=== PATIENT | male | born 1970 | race Caucasian/White ===

== ENCOUNTER 2017-03-10 11:54 | Inpatient (IN) | payer OTHER ==
[2017-03-10 12:03] VITALS: BMI 23.1
--- NOTE | 2017-03-10 14:58 | HP ---
CIWA Score - CIWA Score Nausea/Vomitin Muscle Tremors: 4-Moderate,w/Arms Extend Anxiety: 4-Mod. Anxious/Guarded Agitation: 3 Paroxysmal Sweats: 3 Orientation: 0-Oriented Tacttile Disturbances: 0-None Auditory Disturbances: 0-None Visual Disturbances: 0-None Headache: 2-Mild CIWA-Ar Total Score: 18 Admission ROS BHS - HPI Chief Complaint: Withdrawal sx. Allergies/Adverse Reactions: Allergies Allergy/AdvReac Type Severity Reaction Status Date / Time amoxicillin [Amoxicillin] Allergy Severe Vomiting Verified 02/05/15 16:22 History of Present Illness: 46 y/o man with a long hx. of alcoholism is admitted for detox. Pt. has been in previous detox, denies sobriety. He' currently attending OTP at [facility] on 40mg. Exam Limitations: No Limitations - Ebola screening Have you traveled outside of the country in the last 21 days: No Have you had contact with anyone from an Ebola affected area: No Have you been sick,other than usual withdrawal symptoms: No Do you have a fever: No - Review of Systems Constitutional: Diaphoresis EENT: reports: No Symptoms Reported Respiratory: reports: No Symptoms reported Cardiac: reports: No Symptoms Reported GI: reports: Nausea, Abdominal cramping : reports: No Symptoms Reported Musculoskeletal: reports: Joint Pain Integumentary: reports: Sweating Neuro: reports: Tingling, Tremors, Other (blackouts) Endocrine: reports: No Symptoms Reported Hematology: reports: No Symptoms Reported Psychiatric: reports: No Sypmtoms Reported Other Systems: Reviewed and Negative Patient History - Patient Medical History Hx Anemia: No Hx Asthma: No Hx Chronic Obstructive Pulmonary Disease (COPD): No Hx Cancer: No Hx Cardiac Disorders: No Hx Congestive Heart Failure: No Hx Hypertension: No Hx Hypercholesterolemia: No HX Cerebrovascular Accident: No Hx Seizures: No Hx Dementia: No Hx Diabetes: No Hx Gastrointestinal Disorders: No Hx Liver Disease: No Hx Genitourinary Disorders: No Hx Sexually Transmitted Disorders: No Hx Renal Disease (ESRD): No Hx Thyroid Disease: No Hx Human Immunodeficiency Virus (HIV): No Hx Hepatitis C: No (? not of status) Hx Depression: Yes Hx Suicide Attempt: No Hx Bipolar Disorder: Yes (was on seroquel, non-compliant) Hx Schizophrenia: No - Patient Surgical History Past Surgical History: Yes Hx Neurologic Surgery: No Hx Cataract Extraction: No Hx Cardiac Surgery: No Hx Lung Surgery: No Hx Breast Surgery: No Hx Breast Biopsy: No Hx Abdominal Surgery: No Hx Appendectomy: No Hx Cholecystectomy: No Hx Genitourinary Surgery: No Hx Section: No Hx Orthopedic Surgery: No Other Surgical History: repair of laceration of scalp Anesthesia Reaction: No - PPD History Previous Implant?: Yes Documented Results: Negative w/proof Implanted On Prior [facility] Admission?: Yes Date: 02/07/15 Results: 0 mm PPD to be Administered?: Yes - Smoking Cessation Smoking history: Current every day smoker Have you smoked in the past 12 months: Yes Aproximately how many cigarettes per day: 5 Hx Chewing Tobacco Use: No Initiated information on smoking cessation: Yes 'Breaking Loose' booklet given: 03/10/17 - Substance & Tx. History Hx Alcohol Use: Yes Hx Substance Use: Yes Substance Use Type: Alcohol, Cocaine, Prescribed (Methadone maintenance) Hx Substance Use Treatment: Yes (Detox & rehab) - Substances Abused Alcohol Route: Oral Frequency: Daily Amount used: Beer 4(6packs) Age of first use: 10 Date of Last Use: 03/10/17 Crack Route: Smoking Frequency: 3-6 times per week Amount used: 1-2 bags Age of first use: 13 Date of Last Use: 03/09/17 Family Disease History - Family Disease History Family Disease History: Diabetes: Grandparent (GRANDMOTHER-ALCOHOLISM; G-FATHER- PROSTATE CA--.), Mother (HTN-), CA: Grandparent, Other: Father ( alcohol), Mother Admission Physical Exam [facility] - Vital Signs Vital Signs: Vital Signs - 24 hr 03/10/17 12:01 Temperature 96.7 F L Pulse Rate 86 Respiratory 18 Rate Blood Pressure 130/84 - Physical General Appearance: Yes: Alcohol on Breath, Tremorous, Irritable, Sweating, Anxious HEENTM: Yes: Within Normal Limits Respiratory: Yes: Chest Non-Tender, Lungs Clear, Normal Breath Sounds Neck: Yes: Supple Breast: Yes: Breast Exam Deferred Cardiology: Yes: Regular Rhythm, Regular Rate, S1, S2 Abdominal: Yes: Normal Bowel Sounds, Non Tender, Flat Genitourinary: Yes: Within Normal Limits Back: Yes: Within Normal Limits Musculoskeletal: Yes: Within Normal Limits Extremities: Yes: Tremors Neurological: Yes: Fully Oriented, Alert Integumentary: Yes: Diaphoresis Lymphatic: Yes: Within Normal Limits - Diagnostic (1) Cocaine dependence, uncomplicated Current Visit: Yes Status: Acute (2) Alcohol dependence with withdrawal, uncomplicated Current Visit: Yes Status: Acute (3) Methadone maintenance therapy patient Current Visit: Yes Status: Chronic Cleared for Admission [facility] - Detox or Rehab [facility] Level of Care: Medically Managed Detox Regimen/Protocol: Librium S Breath Alcohol Content Breath Alcohol Content: 0.054 Urine Drug Screen - Results Drug Screen Negative: No Urine Drug Screen Results: GENIA-Cocaine, BZO-Benzodiazepines, MTD-Methadone
[2017-03-10] MEDS ORDERED: MENTHOL/PHENOL 1 EACH UD MM PRN (15:10)
[2017-03-10] MEDS ORDERED: MAGNESIUM CITRATE 300 ML BOTTLE PO PRN (15:10)
[2017-03-10] MEDS ORDERED: chlordiazePOXIDE HCL 25 MG CAPSULE PO PRN (15:10)
[2017-03-10] MEDS ORDERED: NICOTINE POLACRILEX 2 MG GUM BC PRN (15:10)
[2017-03-10] MEDS ORDERED: MAG HYDROX/AL HYDROX/SIMETH 30 ML UNIT-DOSE CUP PO PRN (15:10)
[2017-03-10] MEDS ORDERED: IBUPROFEN 400 MG TABLET (FP) PO PRN (15:10)
[2017-03-10] MEDS ORDERED: LOPERAMIDE HCL 2 MG CAPSULE PO PRN (15:10)
[2017-03-10] MEDS ORDERED: guaiFENesin/D-METHORPHAN HB 10 ML UNIT-DOSE CUPS PO PRN (15:10)
[2017-03-10] MEDS ORDERED: ACETAMINOPHEN 325 MG TABLET (FP) PO PRN (15:10)
[2017-03-10] MEDS ORDERED: hydrOXYzine PAMOATE 50 MG CAPSULE (FP) PO PRN (15:10)
[2017-03-10] MEDS ORDERED: MAGNESIUM HYDROX 2400MG/30ML ORAL SUSPENSION 30 ML CUP PO PRN (15:10)
[2017-03-10] MEDS ORDERED: chlordiazePOXIDE HCL 25 MG CAPSULE PO ONE (15:10)
[2017-03-10] MEDS ORDERED: P-EPHED 60MG/TRIPROLIDI 2.5MG TABLET PO PRN (15:10)
[2017-03-10] MEDS: NICOTINE 14 MG/24 HOURS TOPICAL PATCH TD SCH (18:39)
[2017-03-10] MEDS: chlordiazePOXIDE HCL 25 MG CAPSULE PO SCH ×2 (18:40→22:20)
[2017-03-10 19:19] LABS: URINE APPEARANCE CLEAR; URINE BILIRUBIN NEGATIVE (NEGATIVE); URINE BLOOD NEGATIVE (NEGATIVE); URINE COLOR LTYELLOW; URINE GLUCOSE (UA) NEGATIVE (NEGATIVE); URINE KETONE NEGATIVE (NEGATIVE); URINE LEUK ESTERASE NEGATIVE (NEGATIVE); URINE NITRITE NEGATIVE (NEGATIVE); URINE PROTEIN NEGATIVE (NEGATIVE); URINE UROBILINOGEN NEGATIVE mg/dL (0.2-1.0)
[2017-03-10 21:23] LABS: URINE LEUK ESTERASE NEGATIVE (NEGATIVE)
[2017-03-10] MEDS: THIAMINE HCL 100 MG TABLET (FP) PO SCH (22:20)
[2017-03-11] MEDS: chlordiazePOXIDE HCL 25 MG CAPSULE PO SCH ×4 (05:59→22:11)
[2017-03-11] MEDS: NICOTINE 14 MG/24 HOURS TOPICAL PATCH TD SCH (10:12)
[2017-03-11] MEDS: PRENATAL VITAMINS W/ FOLIC ACID TABLET (FP) PO SCH (10:12)
[2017-03-11] MEDS ORDERED: METHADONE HCL 40 MG DISPERSABLE TABLET PO ONE (10:41)
[2017-03-11 10:46] LABS: MCH 34.8 pg (25.7-33.7); MCHC 33.1 g/dl (32.0-35.9); MEAN CELL VOLUME 104.9 fl (80-96); PLATELET COUNT 247 K/MM3 (134-434); RDW 13.6 % (11.9-15.9); WHITE BLOOD COUNT 4.4 K/mm3 (4.0-10.0)
[2017-03-11 11:01] LABS: ALBUMIN 3.5 g/dl (3.4-5.0); ALK PHOS 87 U/L (45-117); ANION GAP 6 (8-16); BILIRUBIN,TOTAL 0.6 mg/dL (0.2-1.0); CALCIUM 8.6 mg/dL (8.5-10.1); CO2 29 mmol/L (21-32); CREATININE 0.7 mg/dL (0.7-1.3); GLUCOSE,RANDOM 106 mg/dL (74-106); SGPT/ALT 273 U/L (12-78); TOT PROT 8.7 g/dl (6.4-8.2)
[2017-03-11 11:02] LABS: SGOT/AST 436 U/L (15-37)
[2017-03-11] MEDS ORDERED: FLU VACCINE QUAD 60 MCG/0.5 ML (MDV 17-18) IM ONE (12:00)
--- NOTE | 2017-03-11 12:51 | PN ---
[facility] CIWA - CIWA Score Nausea/Vomitin-No Nausea/No Vomiting Muscle Tremors: 4-Moderate,w/Arms Extend Anxiety: 4-Mod. Anxious/Guarded Agitation: 4-Moderately Restless Paroxysmal Sweats: 1-Minimal Palms Moist Orientation: 0-Oriented Tacttile Disturbances: 3-Moderate Itch/Numb/Burn Auditory Disturbances: 0-None Visual Disturbances: 0-None Headache: 0-None Present CIWA-Ar Total Score: 16 S Progress Note (SOAP) Subjective: ANXIETY,SWEATS/CHILLS,FATIGUE. Objective: 03/11/17 12:54 Vital Signs Temperature 98.0 F 03/11/17 09:30 Pulse Rate 79 03/11/17 09:30 Respiratory Rate 16 03/11/17 09:30 Blood Pressure 100/61 03/11/17 09:30 O2 Sat by Pulse Oximetry (%) Laboratory Last Values WBC 4.4 K/mm3 (4.0-10.0) 03/11/17 07:00 RBC 3.53 M/mm3 (4.00-5.60) L 03/11/17 07:00 Hgb 12.3 GM/dL (11.7-16.9) 03/11/17 07:00 Hct 37.0 % (35.4-49) 03/11/17 07:00 MCV 104.9 fl (80-96) H 03/11/17 07:00 MCH 34.8 pg (25.7-33.7) H 03/11/17 07:00 MCHC 33.1 g/dl (32.0-35.9) 03/11/17 07:00 RDW 13.6 % (11.9-15.9) 03/11/17 07:00 Plt Count 247 K/MM3 (134-434) D 03/11/17 07:00 MPV 8.0 fl (7.5-11.1) 03/11/17 07:00 Sodium 135 mmol/L (136-145) L 03/11/17 07:00 Potassium 4.1 mmol/L (3.5-5.1) 03/11/17 07:00 Chloride 100 mmol/L (98-107) 03/11/17 07:00 Carbon Dioxide 29 mmol/L (21-32) 03/11/17 07:00 Anion Gap 6 (8-16) L 03/11/17 07:00 BUN 9 mg/dL (7-18) D 03/11/17 07:00 Creatinine 0.7 mg/dL (0.7-1.3) 03/11/17 07:00 Creat Clearance w eGFR > 60 (>60) 03/11/17 07:00 Random Glucose 106 mg/dL (74-106) D 03/11/17 07:00 Calcium 8.6 mg/dL (8.5-10.1) 03/11/17 07:00 Total Bilirubin 0.6 mg/dL (0.2-1.0) 03/11/17 07:00 AST 436 U/L (15-37) H D 03/11/17 07:00 ALT 273 U/L (12-78) H D 03/11/17 07:00 Alkaline Phosphatase 87 U/L (45-117) 03/11/17 07:00 Total Protein 8.7 g/dl (6.4-8.2) H 03/11/17 07:00 Albumin 3.5 g/dl (3.4-5.0) 03/11/17 07:00 Urine Color Ltyellow 03/10/17 18:00 Urine Appearance Clear 03/10/17 18:00 Urine pH 6.0 (5.0-8.0) 03/10/17 18:00 Ur Specific [place] 1.006 (1.001-1.035) 03/10/17 18:00 Urine Protein Negative (NEGATIVE) 03/10/17 18:00 Urine Glucose (UA) Negative (NEGATIVE) 03/10/17 18:00 Urine Ketones Negative (NEGATIVE) 03/10/17 18:00 Urine Blood Negative (NEGATIVE) 03/10/17 18:00 Urine Nitrite Negative (NEGATIVE) 03/10/17 18:00 Urine Bilirubin Negative (NEGATIVE) 03/10/17 18:00 Urine Urobilinogen Negative mg/dL (0.2-1.0) 03/10/17 18:00 Ur Leukocyte Esterase Negative (NEGATIVE) 03/10/17 18:00 RPR Titer Nonreactive (NONREACTIVE) 03/11/17 07:00 Assessment: 03/11/17 12:56 WITHDRAWAL SX Plan: CONTINUE DETOX
--- NOTE | 2017-03-11 15:14 | EKG ---
Test Reason : Blood Pressure : / mmHG Vent. Rate : 068 BPM Atrial Rate : 068 BPM P-R Int : 116 ms QRS Dur : 100 ms QT Int : 430 ms P-R-T Axes : 013 080 056 degrees QTc Int : 457 ms NORMAL SINUS RHYTHM WITH SINUS ARRHYTHMIA NORMAL ECG NO PREVIOUS ECGS AVAILABLE Confirmed by ANGELA FOWLER MD ([id number]) on 03/11/2017 3:13:35 PM Referred By: Confirmed By:ANGELA FOWLER MD
--- NOTE | 2017-03-11 16:57 | CONSULT ---
[facility] Psychiatric Consult - Data Date of interview: 03/11/17 Admission source: [facility] Identifying data: Readmission to [facility] for this 46 y/o male seeking detox treatment on for opioid,alcohol and cocaine dependence.Patient is single without children,domiciled,unemployed and supported on Public Assistance. Substance Abuse History: Discussed in this session.Confirmed by patient.See details in current [facility] report : Smoking history: Current every day smoker. Have you smoked in the past 12 months: Yes. Aproximately how many cigarettes per day: 5. Hx Chewing Tobacco Use: No. Initiated information on smoking cessation: Yes. 'Breaking Loose' booklet given: 03/10/17. - Substance & Tx. History. Hx Alcohol Use: Yes. Hx Substance Use: Yes. Substance Use Type: Alcohol, Cocaine, Prescribed (Methadone maintenance). Hx Substance Use Treatment: Yes (Detox & rehab). - Substances Abused. Alcohol. Route: Oral. Frequency: Daily. Amount used: Beer 4(6packs). Age of first use: 10. Date of Last Use: 03/10/17. Crack. Route: Smoking. Frequency: 3-6 times per week. Amount used: 1-2 bags. Age of first use: 13. Date of Last Use: 12/16 Medical History: Patient endorses good general health.Noted recent history ( three years ago) of severe laceration of scalp (circumstances not revealed by patient). Psychiatric History: No reported history of psychiatric hospitalizations.Patient denies current use of psychotropic medications.Used to be on seroquel several months ago.Reasons not offered.No OPD care.Mr Licea denies history of suicide attempts.Currently on methadone maintenance (40 mg/day ) at the [facility]MTP program in [facility]. Physical/Sexual Abuse/Trauma History: Patient denies. Additional Comment: Urine Drug Screen Results: GENIA-Cocaine, BZO-Benzodiazepines , MTD-Methadone.Noted. Mental Status Exam - Mental Status Exam Alert and Oriented to: Time, Place, Person Cognitive Function: Good Patient Appearance: Unkempt, Disheveled Mood: Angry (over not receiving his methadone dose as yet), Nervous, Withdrawn, Irritable Affect: Mood Congruent Patient Behavior: Inappropriate (using profane language during interview), Fatigued Speech Pattern: Clear, Inappropriate Voice Loudness: Mildly Loud Thought Process: Goal Oriented Thought Disorder: Not Present Hallucinations: Denies Suicidal Ideation: Denies Homicidal Ideation: Denies Insight/Judgement: Poor Sleep: Well (as per self-report) Appetite: Good Muscle strength/Tone: Normal Gait/Station: Normal Psychiatric Findings - Problem List ([place] 1, 2,3) (1) Opioid dependence on agonist therapy Current Visit: Yes Status: Acute (2) Alcohol dependence with withdrawal, uncomplicated Current Visit: Yes Status: Acute (3) Cocaine dependence, uncomplicated Current Visit: Yes Status: Acute (4) Nicotine dependence Current Visit: Yes Status: Acute Qualifiers: Nicotine product type: cigarettes Substance use status: uncomplicated Qualified Code(s): F17.210 - Nicotine dependence, cigarettes, uncomplicated (5) Drug-induced mood disorder Current Visit: Yes Status: Acute - Initial Treatment Plan Initial Treatment Plan: Psychoeducation.Detoxification.Observation.
[2017-03-11] MEDS: NAPROXEN 500 MG TABLET (FP) PO SCH (22:11)
[2017-03-11] MEDS: THIAMINE HCL 100 MG TABLET (FP) PO SCH (22:11)
[2017-03-12] MEDS: chlordiazePOXIDE HCL 25 MG CAPSULE PO SCH ×2 (05:40→10:08)
[2017-03-12] MEDS: METHADONE HCL 40 MG DISPERSABLE TABLET PO SCH (05:40)
[2017-03-12] MEDS: BACITRACIN 0.9 GM PACKET TP SCH ×2 (10:08→22:18)
[2017-03-12] MEDS: PRENATAL VITAMINS W/ FOLIC ACID TABLET (FP) PO SCH (10:08)
[2017-03-12] MEDS: NICOTINE 14 MG/24 HOURS TOPICAL PATCH TD SCH (10:08)
[2017-03-12] MEDS: NAPROXEN 500 MG TABLET (FP) PO SCH ×2 (10:08→22:18)
--- NOTE | 2017-03-12 12:18 | PN ---
S CIWA - CIWA Score Nausea/Vomitin-No Nausea/No Vomiting Muscle Tremors: 3 Anxiety: 4-Mod. Anxious/Guarded Agitation: 3 Paroxysmal Sweats: 3 Orientation: 0-Oriented Tacttile Disturbances: 3-Moderate Itch/Numb/Burn Auditory Disturbances: 0-None Visual Disturbances: 0-None Headache: 3-Moderate CIWA-Ar Total Score: 19 BHS Progress Note (SOAP) Subjective: Sweating, Tremors, Interrupted Sleep, H/A, Body Aches. Objective: PT. A & OX 3, OBSERVED AMBULATING ON UNIT. NO ACUTE DISTRESS. 03/12/17 12:16 Vital Signs Temperature 97.7 F 03/12/17 09:32 Pulse Rate 79 03/12/17 09:32 Respiratory Rate 18 03/12/17 09:32 Blood Pressure 80/52 03/12/17 09:32 O2 Sat by Pulse Oximetry (%) Laboratory Tests 03/10/17 03/11/17 03/11/17 18:00 07:00 07:00 WBC 4.4 RBC 3.53 L Hgb 12.3 Hct 37.0 MCV 104.9 H MCH 34.8 H MCHC 33.1 RDW 13.6 Plt Count 247 D MPV 8.0 Sodium 135 L Potassium 4.1 Chloride 100 Carbon Dioxide 29 Anion Gap 6 L BUN 9 D Creatinine 0.7 Creat Clearance w eGFR > 60 Random Glucose 106 D Calcium 8.6 Total Bilirubin 0.6 AST 436 H D ALT 273 H D Alkaline Phosphatase 87 Total Protein 8.7 H Albumin 3.5 Urine Color Ltyellow Urine Appearance Clear Urine pH 6.0 Ur Specific [place] 1.006 Urine Protein Negative Urine Glucose (UA) Negative Urine Ketones Negative Urine Blood Negative Urine Nitrite Negative Urine Bilirubin Negative Urine Urobilinogen Negative Ur Leukocyte Esterase Negative RPR Titer 03/11/17 07:00 WBC RBC Hgb Hct MCV MCH MCHC RDW Plt Count MPV Sodium Potassium Chloride Carbon Dioxide Anion Gap BUN Creatinine Creat Clearance w eGFR Random Glucose Calcium Total Bilirubin AST ALT Alkaline Phosphatase Total Protein Albumin Urine Color Urine Appearance Urine pH Ur Specific [place] Urine Protein Urine Glucose (UA) Urine Ketones Urine Blood Urine Nitrite Urine Bilirubin Urine Urobilinogen Ur Leukocyte Esterase RPR Titer Nonreactive LABS NOTED. Assessment: 03/12/17 12:16 WITHDRAWAL SYMPTOMS. Plan: CONTINUED DETOX. INCREASE DAILY PO FLUID INTAKE. REPEAT AST, ALT TOMORROW FOR ELEVATED ADMISSION LEVELS.
[2017-03-12] MEDS: chlordiazePOXIDE 5 MG CAPSULE PO SCH ×2 (18:34→22:18)
[2017-03-12] MEDS: THIAMINE HCL 100 MG TABLET (FP) PO SCH (22:18)
[2017-03-13] MEDS: chlordiazePOXIDE 5 MG CAPSULE PO SCH ×2 (05:11→10:18)
[2017-03-13] MEDS: METHADONE HCL 40 MG DISPERSABLE TABLET PO SCH (05:13)
[2017-03-13] MEDS: BACITRACIN 0.9 GM PACKET TP SCH ×2 (10:18→22:16)
[2017-03-13] MEDS: NAPROXEN 500 MG TABLET (FP) PO SCH ×2 (10:18→22:16)
[2017-03-13] MEDS: PRENATAL VITAMINS W/ FOLIC ACID TABLET (FP) PO SCH (10:18)
[2017-03-13] MEDS: NICOTINE 14 MG/24 HOURS TOPICAL PATCH TD SCH (10:19)
[2017-03-13 10:25] LABS: SGOT/AST 269 U/L (15-37); SGPT/ALT 228 U/L (12-78)
--- NOTE | 2017-03-13 11:52 | PN ---
BHS Progress Note (SOAP) Subjective: Body Aches, Anxious, H/A. Objective: PT. A & O X 3, OBSERVED AMBULATING ON UNIT. NO ACUTE DISTRESS. 03/13/17 11:47 Vital Signs Temperature 96.3 F L 03/13/17 06:22 Pulse Rate 73 03/13/17 06:22 Respiratory Rate 18 03/13/17 06:22 Blood Pressure 108/60 03/13/17 06:22 O2 Sat by Pulse Oximetry (%) Laboratory Tests 03/10/17 03/11/17 03/11/17 18:00 07:00 07:00 WBC 4.4 RBC 3.53 L Hgb 12.3 Hct 37.0 MCV 104.9 H MCH 34.8 H MCHC 33.1 RDW 13.6 Plt Count 247 D MPV 8.0 Sodium 135 L Potassium 4.1 Chloride 100 Carbon Dioxide 29 Anion Gap 6 L BUN 9 D Creatinine 0.7 Creat Clearance w eGFR > 60 Random Glucose 106 D Calcium 8.6 Total Bilirubin 0.6 AST 436 H D ALT 273 H D Alkaline Phosphatase 87 Total Protein 8.7 H Albumin 3.5 Urine Color Ltyellow Urine Appearance Clear Urine pH 6.0 Ur Specific [place] 1.006 Urine Protein Negative Urine Glucose (UA) Negative Urine Ketones Negative Urine Blood Negative Urine Nitrite Negative Urine Bilirubin Negative Urine Urobilinogen Negative Ur Leukocyte Esterase Negative RPR Titer 03/11/17 03/13/17 07:00 07:00 WBC RBC Hgb Hct MCV MCH MCHC RDW Plt Count MPV Sodium Potassium Chloride Carbon Dioxide Anion Gap BUN Creatinine Creat Clearance w eGFR Random Glucose Calcium Total Bilirubin AST 269 H D ALT 228 H Alkaline Phosphatase Total Protein Albumin Urine Color Urine Appearance Urine pH Ur Specific [place] Urine Protein Urine Glucose (UA) Urine Ketones Urine Blood Urine Nitrite Urine Bilirubin Urine Urobilinogen Ur Leukocyte Esterase RPR Titer Nonreactive LABS NOTED. RESULTS OF REPEAT AST / ALT NOTED. 03/13/17 11:52 Assessment: 03/13/17 11:47 WITHDRAWAL SYMPTOMS. Plan: CONTINUE DETOX. INCREASE DAILY PO FLUID INTAKE.
[2017-03-13] MEDS: chlordiazePOXIDE HCL 10 MG CAPSULE PO SCH ×2 (17:55→22:16)
[2017-03-13] MEDS: THIAMINE HCL 100 MG TABLET (FP) PO SCH (22:16)
[2017-03-14] MEDS: METHADONE HCL 40 MG DISPERSABLE TABLET PO SCH (06:03)
[2017-03-14] MEDS: chlordiazePOXIDE HCL 10 MG CAPSULE PO SCH (06:03)
[2017-03-14 09:40] VITALS: BP 93/57; PULSE 80; TEMP 97.9
[2017-03-14] MEDS: NICOTINE 14 MG/24 HOURS TOPICAL PATCH TD SCH (10:06)
[2017-03-14] MEDS: NAPROXEN 500 MG TABLET (FP) PO SCH (10:06)
[2017-03-14] MEDS: BACITRACIN 0.9 GM PACKET TP SCH (10:06)
[2017-03-14] MEDS: PRENATAL VITAMINS W/ FOLIC ACID TABLET (FP) PO SCH (10:06)
--- NOTE | 2017-03-14 14:58 | DS ---
[facility] Detox Discharge Summary Admission Date: 03/10/17 Discharge Date: 03/14/17 - History Present History: Alcohol Dependence, Cocaine Dependence, Opioid Dependence Additional Comments: PATIENT GOING TO [facility] ([place] FOR AFTERCARE. PATIENT WAS DISCHARGED FROM DETOX UNIT IN STABLE MEDICAL CONDITION. Pertinent Past History: Depression, Bipolar Disorder, Nicotine Dependence, MMTP. - Physical Exam Results Vital Signs: Vital Signs Temperature 97.9 F 03/14/17 09:40 Pulse Rate 80 03/14/17 09:40 Respiratory Rate 18 03/14/17 09:40 Blood Pressure 93/57 03/14/17 09:40 O2 Sat by Pulse Oximetry (%) Pertinent Admission Physical Exam Findings: WITHDRAWAL SYMPTOMS. Laboratory Tests 03/10/17 03/11/17 03/11/17 18:00 07:00 07:00 WBC 4.4 RBC 3.53 L Hgb 12.3 Hct 37.0 MCV 104.9 H MCH 34.8 H MCHC 33.1 RDW 13.6 Plt Count 247 D MPV 8.0 Sodium 135 L Potassium 4.1 Chloride 100 Carbon Dioxide 29 Anion Gap 6 L BUN 9 D Creatinine 0.7 Creat Clearance w eGFR > 60 Random Glucose 106 D Calcium 8.6 Total Bilirubin 0.6 AST 436 H D ALT 273 H D Alkaline Phosphatase 87 Total Protein 8.7 H Albumin 3.5 Urine Color Ltyellow Urine Appearance Clear Urine pH 6.0 Ur Specific [place] 1.006 Urine Protein Negative Urine Glucose (UA) Negative Urine Ketones Negative Urine Blood Negative Urine Nitrite Negative Urine Bilirubin Negative Urine Urobilinogen Negative Ur Leukocyte Esterase Negative RPR Titer 03/11/17 03/13/17 07:00 07:00 WBC RBC Hgb Hct MCV MCH MCHC RDW Plt Count MPV Sodium Potassium Chloride Carbon Dioxide Anion Gap BUN Creatinine Creat Clearance w eGFR Random Glucose Calcium Total Bilirubin AST 269 H D ALT 228 H Alkaline Phosphatase Total Protein Albumin Urine Color Urine Appearance Urine pH Ur Specific [place] Urine Protein Urine Glucose (UA) Urine Ketones Urine Blood Urine Nitrite Urine Bilirubin Urine Urobilinogen Ur Leukocyte Esterase RPR Titer Nonreactive LABS NOTED. - Treatment Hospital Course: Detox Protocol Followed, Detoxed Safely, Responded well, Discharged Condition Good Patient has Accepted a Rehab Referral to: PT. GOING TO [facility] ([place]FOR AFTERCARE. - Diagnosis (1) Alcohol dependence with withdrawal, uncomplicated Status: Acute (2) Cocaine dependence, uncomplicated Status: Acute (3) Methadone maintenance therapy patient Status: Chronic (4) Drug-induced mood disorder Status: Acute (5) Nicotine dependence Status: Acute Qualifiers: Nicotine product type: cigarettes Substance use status: uncomplicated Qualified Code(s): F17.210 - Nicotine dependence, cigarettes, uncomplicated (6) Opioid dependence on agonist therapy Status: Acute - AMA Did Patient Leave Against Medical Advice: No
== END 2017-03-14 11:00 | disposition home or self-care (01) | DRG 773 ==
LOC: YASAS 11:54 → Y3N 15:43
PROVIDERS: ADMIT Internal Medicine; ATTEND Internal Medicine
PROC: HZ2ZZZZ Detoxification Services for Substance Abuse Treatment (ICD-10-PCS; principal; 2017-03-10)
DX: F11.20 Opioid dependence, uncomplicated (principal); F13.230 Sedative, hypnotic or anxiolytic dependence with withdrawal, uncomplicated; F14.20 Cocaine dependence, uncomplicated; F17.210 Nicotine dependence, cigarettes, uncomplicated; F19.24 Other psychoactive substance dependence with psychoactive substance-induced mood disorder; F31.9 Bipolar disorder, unspecified
CPT/HCPCS: 36415; 80053; 81003; 84450; 84460; 85027; 86593; 93005; 93010

== ENCOUNTER 2017-04-22 09:48 | Inpatient (IN) | payer OTHER ==
[2017-04-22 12:25] VITALS: BMI 20.6
--- NOTE | 2017-04-22 15:07 | HP ---
CIWA Score - CIWA Score Nausea/Vomitin-No Nausea/No Vomiting Muscle Tremors: 4-Moderate,w/Arms Extend Anxiety: 4-Mod. Anxious/Guarded Agitation: 4-Moderately Restless Paroxysmal Sweats: 1-Minimal Palms Moist Orientation: 0-Oriented Tacttile Disturbances: 3-Moderate Itch/Numb/Burn Auditory Disturbances: 0-None Visual Disturbances: 0-None Headache: 0-None Present CIWA-Ar Total Score: 16 Admission ROS BHS - HPI Chief Complaint: WITHDRAWAL SX FROM ALCOHOL Allergies/Adverse Reactions: Allergies Allergy/AdvReac Type Severity Reaction Status Date / Time No Known Drug Allergies Allergy Verified 04/22/17 16:24 amoxicillin [Amoxicillin] AdvReac Severe Vomiting Verified 04/22/17 16:24 History of Present Illness: 46 Y/O MALE WITH A HX OF ALCOHOL DEPENDENCE ON MMTP SEEKING DETOX TX. PT REPORTS WENT TO [facility] ER LAST NIGHT BUT WAS REFERRED HERE FOR DETOX TODAY. Exam Limitations: No Limitations - Ebola screening Have you traveled outside of the country in the last 21 days: No Have you had contact with anyone from an Ebola affected area: No Have you been sick,other than usual withdrawal symptoms: No - Review of Systems Constitutional: Chills, Night Sweats EENT: reports: Tearing, Nose Congestion Respiratory: reports: No Symptoms reported GI: reports: No Symptoms Reported : reports: No Symptoms Reported Musculoskeletal: reports: No Symptoms Reported Integumentary: reports: Bruising (TWO INDEX FINGERS--FROSTBITE 2 WEEKS AGO. CURRENTLY ON CEPHALEXIN 250 MG FOUR TIMES DAILY.) Neuro: reports: Headache (MIGRAINES), Tremors, Unsteady Gait, Dizziness, Other ( HX FALLS WITH HEAD INJURY AND STITCHES 3 YRS AGO DUE TO DRINKING ALCOHOL.) Endocrine: reports: No Symptoms Reported Hematology: reports: No Symptoms Reported Psychiatric: reports: Orientated x3, Anxious, Depressed Other Systems: Reviewed and Negative Patient History - Patient Medical History Hx Anemia: No Hx Asthma: No Hx Chronic Obstructive Pulmonary Disease (COPD): No Hx Cancer: No Hx Cardiac Disorders: No Hx Congestive Heart Failure: No Hx Hypertension: No Hx Hypercholesterolemia: No HX Cerebrovascular Accident: No Hx Seizures: No Hx Dementia: No Hx Diabetes: No Hx Gastrointestinal Disorders: No Hx Liver Disease: No Hx Genitourinary Disorders: No Hx Sexually Transmitted Disorders: No Hx Renal Disease (ESRD): No Hx Thyroid Disease: No Hx Human Immunodeficiency Virus (HIV): No Hx Hepatitis C: No Hx Depression: No Hx Suicide Attempt: No Hx Bipolar Disorder: Yes (was on seroquel, non-compliant) Hx Schizophrenia: No - Patient Surgical History Past Surgical History: Yes Hx Neurologic Surgery: No Hx Cataract Extraction: No Hx Cardiac Surgery: No Hx Lung Surgery: No Hx Breast Surgery: No Hx Breast Biopsy: No Hx Abdominal Surgery: No Hx Appendectomy: No Hx Cholecystectomy: No Hx Genitourinary Surgery: No Hx Orthopedic Surgery: No Other Surgical History: repair of laceration of scalp due to fall in intoxication 3 yrs ago. Anesthesia Reaction: No - PPD History Previous Implant?: Yes Documented Results: Negative w/proof Implanted On Prior [facility] Admission?: Yes Date: 03/12/17 Results: 0 mm PPD to be Administered?: No - Reproductive History Patient is a Female of Child Bearing Age (11 -55 yrs old): No (MALE) - Smoking Cessation Smoking history: Current every day smoker Have you smoked in the past 12 months: Yes Aproximately how many cigarettes per day: 10 Hx Chewing Tobacco Use: No Initiated information on smoking cessation: Yes 'Breaking Loose' booklet given: 04/22/17 - Substance & Tx. History Hx Alcohol Use: Yes (BEER/VODKA) Hx Substance Use: No (DENIES) Substance Use Type: Alcohol Hx Substance Use Treatment: Yes ([facility]-METHADONE 40 MG PO DAILY, L/D 04/21/17) - Substances Abused Alcohol Route: Oral Frequency: Daily Amount used: 2 6pks beer Age of first use: 10 Date of Last Use: 04/22/17 Family Disease History - Family Disease History Family Disease History: Diabetes: Grandparent (GRANDMOTHER-ALCOHOLISM; G-FATHER- PROSTATE CA--.), Mother (HTN-), CA: Grandparent, Other: Father ( no contact - alcohol), Mother, Brother (healthy), Sister (healthy) Admission Physical Exam BHS - Vital Signs Vital Signs: Vital Signs - 24 hr 04/22/17 12:24 Temperature 98.2 F Pulse Rate 72 Respiratory 20 Rate Blood Pressure 118/82 - Physical General Appearance: Yes: Within Normal Limits, Moderate Distress, Irritable, Anxious HEENTM: Yes: EOMI, Normocephalic, OSMAN, Pharynx Normal Respiratory: Yes: Chest Non-Tender, Lungs Clear, Normal Breath Sounds Neck: Yes: No masses,lesions,Nodules, Supple, Trachea in good position Breast: Yes: Breast Exam Deferred Cardiology: Yes: Regular Rhythm, Regular Rate, S1, S2 Abdominal: Yes: Normal Bowel Sounds, Non Tender, Flat Genitourinary: Yes: Other Back: Yes: Within Normal Limits Musculoskeletal: Yes: full range of Motion, Gait Steady Extremities: Yes: Normal Range of Motion, Non-Tender Neurological: Yes: recreation therapist II-XII NML intact, Fully Oriented, Alert, Motor Strength 5/5 Integumentary: Yes: Dry, Warm Lymphatic: Yes: Within Normal Limits - Diagnostic (1) Alcohol dependence with withdrawal, uncomplicated Current Visit: Yes Status: Acute (2) Methadone maintenance therapy patient Current Visit: Yes Status: Chronic (3) History of herpes genitalis Current Visit: Yes Status: Chronic Comment: NO CURRENT FLARE UP. (4) Rash and nonspecific skin eruption Current Visit: Yes Status: Acute (5) Scabies Current Visit: Yes Status: Acute (6) Frostbite with tissue necrosis of finger Current Visit: Yes Status: Acute Qualifiers: Encounter type: subsequent encounter Comment: BOTH INDEX FINGERS Cleared for Admission [facility] - Detox or Rehab [facility] Level of Care: Medically Managed Detox Regimen/Protocol: Librium [facility] Breath Alcohol Content Breath Alcohol Content: 0 Urine Drug Screen - Results Drug Screen Negative: No Urine Drug Screen Results: BZO-Benzodiazepines, MTD-Methadone
[2017-04-22] MEDS ORDERED: guaiFENesin/D-METHORPHAN HB 10 ML UNIT-DOSE CUPS PO PRN (15:27)
[2017-04-22] MEDS ORDERED: hydrOXYzine PAMOATE 25 MG CAPSULE (FP) PO PRN (15:27)
[2017-04-22] MEDS ORDERED: LOPERAMIDE HCL 2 MG CAPSULE PO PRN (15:27)
[2017-04-22] MEDS ORDERED: P-EPHED 60MG/TRIPROLIDI 2.5MG TABLET PO PRN (15:27)
[2017-04-22] MEDS ORDERED: MAG HYDROX/AL HYDROX/SIMETH 30 ML UNIT-DOSE CUP PO PRN (15:27)
[2017-04-22] MEDS ORDERED: NICOTINE POLACRILEX 2 MG GUM BC PRN (15:27)
[2017-04-22] MEDS ORDERED: MAGNESIUM CITRATE 300 ML BOTTLE PO PRN (15:27)
[2017-04-22] MEDS ORDERED: MAGNESIUM HYDROX 2400MG/30ML ORAL SUSPENSION 30 ML CUP PO PRN (15:27)
[2017-04-22] MEDS ORDERED: IBUPROFEN 400 MG TABLET (FP) PO PRN (15:27)
[2017-04-22] MEDS ORDERED: MENTHOL/PHENOL 1 EACH UD MM PRN (15:27)
[2017-04-22] MEDS ORDERED: PERMETHRIN 5% TOPICAL CREAM 60 GM TUBE TP ONE (15:41)
[2017-04-22] MEDS ORDERED: chlordiazePOXIDE HCL 25 MG CAPSULE PO ONE (15:45)
[2017-04-22] MEDS ORDERED: METHADONE HCL 40 MG DISPERSABLE TABLET PO ONE (16:30)
[2017-04-22 17:41] LABS: HEMATOCRIT 34.6 % (35.4-49); HEMOGLOBIN 11.7 GM/dL (11.7-16.9); MCH 34.8 pg (25.7-33.7); MCHC 33.9 g/dl (32.0-35.9); MEAN CELL VOLUME 102.5 fl (80-96); MEAN PLT VOLUME 7.9 fl (7.5-11.1); PLATELET COUNT 393 K/MM3 (134-434); RBC 3.38 M/mm3 (4.00-5.60); RDW 12.8 % (11.9-15.9); WHITE BLOOD COUNT 4.2 K/mm3 (4.0-10.0)
[2017-04-22] MEDS: chlordiazePOXIDE HCL 25 MG CAPSULE PO SCH ×2 (17:50→22:27)
[2017-04-22] MEDS: NICOTINE 14 MG/24 HOURS TOPICAL PATCH TD SCH (17:50)
[2017-04-22] MEDS: CEPHALEXIN MONOHYDRATE 250 MG CAPSULE (FP) PO SCH ×2 (17:50→23:29)
[2017-04-22 17:51] LABS: CHLORIDE 98 mmol/L (98-107); POTASSIUM 4.1 mmol/L (3.5-5.1); SODIUM 133 mmol/L (136-145)
[2017-04-22 18:06] LABS: ALBUMIN 3.5 g/dl (3.4-5.0); ALK PHOS 116 U/L (45-117); ANION GAP 6 (8-16); BILIRUBIN,TOTAL 0.8 mg/dL (0.2-1.0); BLOOD UREA NITROGEN 12 mg/dL (7-18); CALCIUM 9.1 mg/dL (8.5-10.1); CO2 29 mmol/L (21-32); CREATININE 0.8 mg/dL (0.7-1.3); GLUCOSE,RANDOM 115 mg/dL (74-106); SGOT/AST 395 U/L (15-37); SGPT/ALT 212 U/L (12-78); TOT PROT 9.2 g/dl (6.4-8.2)
[2017-04-22] MEDS: BACITRACIN 0.9 GM PACKET TP SCH (22:27)
[2017-04-22] MEDS: THIAMINE HCL 100 MG TABLET (FP) PO SCH (22:27)
[2017-04-22] MEDS: NAPROXEN 500 MG TABLET (FP) PO SCH (22:27)
[2017-04-22 23:07] LABS: URINE APPEARANCE CLEAR; URINE BILIRUBIN NEGATIVE (NEGATIVE); URINE BLOOD NEGATIVE (NEGATIVE); URINE COLOR LTYELLOW; URINE GLUCOSE (UA) NEGATIVE (NEGATIVE); URINE KETONE NEGATIVE (NEGATIVE); URINE LEUK ESTERASE NEGATIVE (NEGATIVE); URINE NITRITE NEGATIVE (NEGATIVE); URINE PROTEIN NEGATIVE (NEGATIVE)
[2017-04-23] MEDS: chlordiazePOXIDE HCL 25 MG CAPSULE PO PRN (01:08)
[2017-04-23] MEDS: ACETAMINOPHEN 325 MG TABLET (FP) PO PRN ×2 (01:09→19:50)
[2017-04-23] MEDS: METHADONE HCL 40 MG DISPERSABLE TABLET PO SCH (05:57)
[2017-04-23] MEDS: chlordiazePOXIDE HCL 25 MG CAPSULE PO SCH ×4 (05:57→22:50)
[2017-04-23] MEDS: CEPHALEXIN MONOHYDRATE 250 MG CAPSULE (FP) PO SCH ×4 (06:00→23:20)
[2017-04-23] MEDS: NICOTINE 14 MG/24 HOURS TOPICAL PATCH TD SCH (10:17)
[2017-04-23] MEDS: PRENATAL VITAMINS W/ FOLIC ACID TABLET (FP) PO SCH (10:17)
[2017-04-23] MEDS: NAPROXEN 500 MG TABLET (FP) PO SCH ×2 (10:17→22:50)
[2017-04-23] MEDS: BACITRACIN 0.9 GM PACKET TP SCH ×2 (10:17→22:50)
--- NOTE | 2017-04-23 10:20 | PN ---
[facility] CIWA - CIWA Score Nausea/Vomitin-No Nausea/No Vomiting Muscle Tremors: 4-Moderate,w/Arms Extend Anxiety: 4-Mod. Anxious/Guarded Agitation: 4-Moderately Restless Paroxysmal Sweats: 1-Minimal Palms Moist Orientation: 0-Oriented Tacttile Disturbances: 3-Moderate Itch/Numb/Burn Auditory Disturbances: 0-None Visual Disturbances: 0-None Headache: 0-None Present CIWA-Ar Total Score: 16 BHS Progress Note (SOAP) Subjective: ANXIETY,SWEATS,TREMORS,FATIGUE. Objective: 04/23/17 10:19 Vital Signs Temperature 97.4 F L 04/23/17 09:26 Pulse Rate 82 04/23/17 09:26 Respiratory Rate 18 04/23/17 09:26 Blood Pressure 106/78 04/23/17 09:26 O2 Sat by Pulse Oximetry (%) Laboratory Last Values WBC 4.2 K/mm3 (4.0-10.0) 04/22/17 15:30 RBC 3.38 M/mm3 (4.00-5.60) L 04/22/17 15:30 Hgb 11.7 GM/dL (11.7-16.9) 04/22/17 15:30 Hct 34.6 % (35.4-49) L 04/22/17 15:30 MCV 102.5 fl (80-96) H 04/22/17 15:30 MCH 34.8 pg (25.7-33.7) H 04/22/17 15:30 MCHC 33.9 g/dl (32.0-35.9) 04/22/17 15:30 RDW 12.8 % (11.9-15.9) 04/22/17 15:30 Plt Count 393 K/MM3 (134-434) D 04/22/17 15:30 MPV 7.9 fl (7.5-11.1) 04/22/17 15:30 Sodium 133 mmol/L (136-145) L 04/22/17 15:30 Potassium 4.1 mmol/L (3.5-5.1) 04/22/17 15:30 Chloride 98 mmol/L (98-107) 04/22/17 15:30 Carbon Dioxide 29 mmol/L (21-32) 04/22/17 15:30 Anion Gap 6 (8-16) L 04/22/17 15:30 BUN 12 mg/dL (7-18) D 04/22/17 15:30 Creatinine 0.8 mg/dL (0.7-1.3) 04/22/17 15:30 Creat Clearance w eGFR > 60 (>60) 04/22/17 15:30 Random Glucose 115 mg/dL (74-106) H 04/22/17 15:30 Calcium 9.1 mg/dL (8.5-10.1) 04/22/17 15:30 Total Bilirubin 0.8 mg/dL (0.2-1.0) D 04/22/17 15:30 AST 395 U/L (15-37) H D 04/22/17 15:30 ALT 212 U/L (12-78) H 04/22/17 15:30 Alkaline Phosphatase 116 U/L (45-117) D 04/22/17 15:30 Total Protein 9.2 g/dl (6.4-8.2) H 04/22/17 15:30 Albumin 3.5 g/dl (3.4-5.0) 04/22/17 15:30 Urine Color Ltyellow 04/22/17 22:40 Urine Appearance Clear 04/22/17 22:40 Urine pH 7.0 (5.0-8.0) 04/22/17 22:40 Ur Specific [place] 1.013 (1.001-1.035) 04/22/17 22:40 Urine Protein Negative (NEGATIVE) 04/22/17 22:40 Urine Glucose (UA) Negative (NEGATIVE) 04/22/17 22:40 Urine Ketones Negative (NEGATIVE) 04/22/17 22:40 Urine Blood Negative (NEGATIVE) 04/22/17 22:40 Urine Nitrite Negative (NEGATIVE) 04/22/17 22:40 Urine Bilirubin Negative (NEGATIVE) 04/22/17 22:40 Urine Urobilinogen 2.0 mg/dL (0.2-1.0) 04/22/17 22:40 Ur Leukocyte Esterase Negative (NEGATIVE) 04/22/17 22:40 Assessment: 04/23/17 10:20 WITHDRAWAL SX Plan: CONTINUE DETOX
--- NOTE | 2017-04-23 11:30 | CONSULT ---
[facility] Psychiatric Consult - Data Date of interview: 04/23/17 Admission source: [facility] Identifying data: Another admission to [facility] for this 46 y/o male seeking detox treatment on for opioid and alcohol dependence.Patient is single without children,domiciled,unemployed and supported on Public Assistance. Substance Abuse History: Discussed in this session.Confirmed by patient.See details in [facility] report : Smoking history: Current every day smoker. Have you smoked in the past 12 months: Yes. Aproximately how many cigarettes per day: 10. Hx Chewing Tobacco Use: No. Initiated information on smoking cessation: Yes. 'Breaking Loose' booklet given: 04/22/17. - Substance & Tx. History. Hx Alcohol Use: Yes (BEER/VODKA). Hx Substance Use: No (DENIES). Substance Use Type: Alcohol. Hx Substance Use Treatment: Yes ([facility]- METHADONE 40 MG PO DAILY, L/D 04/21/17). - Substances Abused. Alcohol. Route: Oral. Frequency: Daily. Amount used: 2 6pks beer. Age of first use: 10. Date of Last Use: 04/22/17 Medical History: History of surgical care for severe laceration of scalp ( consequence of a fall during episode of alcohol intoxication),herpes genitalis, seborrheic dermatitis,migraine headaches and current antibiotherapy for frosbite (two fingers). Psychiatric History: Patient denies history of psychiatric hospitalizations.No current use of psychotropic medications with the exception of methadone (40 mg/ day at the [facility] program in [facility]).Diagnosed in the past with Bipolar Disorder and previously prescribed seroquel.Non adherent for several months.No OPD care.Mr Licea denies history of suicide attempts. Physical/Sexual Abuse/Trauma History: No reported history of abuse. Additional Comment: Urine Drug Screen Results: BZO-Benzodiazepines, MTD- Methadone.Noted. Mental Status Exam - Mental Status Exam Alert and Oriented to: Time, Place, Person Cognitive Function: Grossly Intact Patient Appearance: Unkempt, Disheveled Mood: Withdrawn, Irritable Affect: Mood Congruent Patient Behavior: Fatigued, Cooperative Speech Pattern: Slurred (but coherent and goal-directed) Voice Loudness: Normal Thought Process: Goal Oriented Thought Disorder: Not Present Hallucinations: Denies Suicidal Ideation: Denies Homicidal Ideation: Denies Insight/Judgement: Poor Sleep: Fair Appetite: Good Muscle strength/Tone: Normal Gait/Station: Normal Psychiatric Findings - Problem List ([place] 1, 2,3) (1) Alcohol dependence with withdrawal, uncomplicated Current Visit: Yes Status: Acute (2) Opioid dependence on agonist therapy Current Visit: Yes Status: Acute (3) Nicotine dependence Current Visit: Yes Status: Acute Qualifiers: Nicotine product type: cigarettes Substance use status: uncomplicated Qualified Code(s): F17.210 - Nicotine dependence, cigarettes, uncomplicated (4) Drug-induced mood disorder Current Visit: Yes Status: Acute - Initial Treatment Plan Initial Treatment Plan: Previous records are reviewed.Detoxification in progress.Psychoeducation provided in this session.Observation.
[2017-04-23] MEDS: THIAMINE HCL 100 MG TABLET (FP) PO SCH (22:50)
[2017-04-24] MEDS: METHADONE HCL 40 MG DISPERSABLE TABLET PO SCH (05:33)
[2017-04-24] MEDS: chlordiazePOXIDE HCL 25 MG CAPSULE PO SCH ×2 (05:33→10:12)
[2017-04-24] MEDS: ACETAMINOPHEN 325 MG TABLET (FP) PO PRN (05:34)
[2017-04-24] MEDS: CEPHALEXIN MONOHYDRATE 250 MG CAPSULE (FP) PO SCH ×3 (05:52→18:15)
--- NOTE | 2017-04-24 07:55 | EKG ---
Test Reason : Blood Pressure : / mmHG Vent. Rate : 061 BPM Atrial Rate : 061 BPM P-R Int : 126 ms QRS Dur : 102 ms QT Int : 448 ms P-R-T Axes : 000 077 049 degrees QTc Int : 450 ms NORMAL SINUS RHYTHM NORMAL ECG WHEN COMPARED WITH ECG OF 10-MAR-2017 18:58, NO SIGNIFICANT CHANGE WAS FOUND Confirmed by KATARINA PULIDO MD ([id number]) on 04/24/2017 7:55:27 AM Referred By: Confirmed By:KATARINA PULIDO MD
[2017-04-24] MEDS: BACITRACIN 0.9 GM PACKET TP SCH ×2 (10:11→22:31)
[2017-04-24] MEDS: NAPROXEN 500 MG TABLET (FP) PO SCH ×2 (10:11→22:31)
[2017-04-24] MEDS: PRENATAL VITAMINS W/ FOLIC ACID TABLET (FP) PO SCH (10:11)
[2017-04-24] MEDS: NICOTINE 14 MG/24 HOURS TOPICAL PATCH TD SCH (10:12)
[2017-04-24] MEDS: SELENIUM SULFIDE 2.5% LOTION 4 OZ. TP SCH (10:12)
--- NOTE | 2017-04-24 10:53 | PN ---
[facility] CIWA - CIWA Score Nausea/Vomitin-No Nausea/No Vomiting Muscle Tremors: 4-Moderate,w/Arms Extend Anxiety: 4-Mod. Anxious/Guarded Agitation: 4-Moderately Restless Paroxysmal Sweats: 1-Minimal Palms Moist Orientation: 0-Oriented Tacttile Disturbances: 3-Moderate Itch/Numb/Burn Auditory Disturbances: 0-None Visual Disturbances: 0-None Headache: 0-None Present CIWA-Ar Total Score: 16 S Progress Note (SOAP) Subjective: ANXIETY,SWEATS,FATIGUE. Objective: 04/24/17 10:53 Vital Signs Temperature 98.6 F 04/24/17 09:49 Pulse Rate 98 H 04/24/17 09:49 Respiratory Rate 16 04/24/17 09:49 Blood Pressure 88/61 04/24/17 09:49 O2 Sat by Pulse Oximetry (%) Laboratory Last Values WBC 4.2 K/mm3 (4.0-10.0) 04/22/17 15:30 RBC 3.38 M/mm3 (4.00-5.60) L 04/22/17 15:30 Hgb 11.7 GM/dL (11.7-16.9) 04/22/17 15:30 Hct 34.6 % (35.4-49) L 04/22/17 15:30 MCV 102.5 fl (80-96) H 04/22/17 15:30 MCH 34.8 pg (25.7-33.7) H 04/22/17 15:30 MCHC 33.9 g/dl (32.0-35.9) 04/22/17 15:30 RDW 12.8 % (11.9-15.9) 04/22/17 15:30 Plt Count 393 K/MM3 (134-434) D 04/22/17 15:30 MPV 7.9 fl (7.5-11.1) 04/22/17 15:30 Sodium 133 mmol/L (136-145) L 04/22/17 15:30 Potassium 4.1 mmol/L (3.5-5.1) 04/22/17 15:30 Chloride 98 mmol/L (98-107) 04/22/17 15:30 Carbon Dioxide 29 mmol/L (21-32) 04/22/17 15:30 Anion Gap 6 (8-16) L 04/22/17 15:30 BUN 12 mg/dL (7-18) D 04/22/17 15:30 Creatinine 0.8 mg/dL (0.7-1.3) 04/22/17 15:30 Creat Clearance w eGFR > 60 (>60) 04/22/17 15:30 Random Glucose 115 mg/dL (74-106) H 04/22/17 15:30 Calcium 9.1 mg/dL (8.5-10.1) 04/22/17 15:30 Total Bilirubin 0.8 mg/dL (0.2-1.0) D 04/22/17 15:30 AST 395 U/L (15-37) H D 04/22/17 15:30 ALT 212 U/L (12-78) H 04/22/17 15:30 Alkaline Phosphatase 116 U/L (45-117) D 04/22/17 15:30 Total Protein 9.2 g/dl (6.4-8.2) H 04/22/17 15:30 Albumin 3.5 g/dl (3.4-5.0) 04/22/17 15:30 Urine Color Ltyellow 04/22/17 22:40 Urine Appearance Clear 04/22/17 22:40 Urine pH 7.0 (5.0-8.0) 04/22/17 22:40 Ur Specific [place] 1.013 (1.001-1.035) 04/22/17 22:40 Urine Protein Negative (NEGATIVE) 04/22/17 22:40 Urine Glucose (UA) Negative (NEGATIVE) 04/22/17 22:40 Urine Ketones Negative (NEGATIVE) 04/22/17 22:40 Urine Blood Negative (NEGATIVE) 04/22/17 22:40 Urine Nitrite Negative (NEGATIVE) 04/22/17 22:40 Urine Bilirubin Negative (NEGATIVE) 04/22/17 22:40 Urine Urobilinogen 2.0 mg/dL (0.2-1.0) 04/22/17 22:40 Ur Leukocyte Esterase Negative (NEGATIVE) 04/22/17 22:40 RPR Titer Nonreactive (NONREACTIVE) 04/22/17 15:30 Assessment: 04/24/17 10:53 WITHDRAWAL SX Plan: CONTINUE DETOX
[2017-04-24] MEDS: chlordiazePOXIDE 5 MG CAPSULE PO SCH ×2 (18:14→22:31)
[2017-04-24] MEDS: THIAMINE HCL 100 MG TABLET (FP) PO SCH (22:31)
[2017-04-25] MEDS: METHADONE HCL 40 MG DISPERSABLE TABLET PO SCH (05:23)
[2017-04-25] MEDS: chlordiazePOXIDE 5 MG CAPSULE PO SCH ×2 (05:23→10:27)
[2017-04-25] MEDS: CEPHALEXIN MONOHYDRATE 250 MG CAPSULE (FP) PO SCH (05:24)
[2017-04-25] MEDS: NAPROXEN 500 MG TABLET (FP) PO SCH ×2 (10:10→22:24)
[2017-04-25] MEDS: chlordiazePOXIDE HCL 25 MG CAPSULE PO PRN (10:10)
[2017-04-25] MEDS: BACITRACIN 0.9 GM PACKET TP SCH ×2 (10:10→22:24)
[2017-04-25] MEDS: PRENATAL VITAMINS W/ FOLIC ACID TABLET (FP) PO SCH (10:10)
[2017-04-25] MEDS: SELENIUM SULFIDE 2.5% LOTION 4 OZ. TP SCH (10:11)
[2017-04-25] MEDS: NICOTINE 14 MG/24 HOURS TOPICAL PATCH TD SCH (10:11)
--- NOTE | 2017-04-25 10:17 | PN ---
BHS Progress Note (SOAP) Subjective: ALERT O X 3. OOB BED WITH STEADY GAIT. SWEATS AT NIGHT. Objective: 04/25/17 10:12 Vital Signs Temperature 97.0 F L 04/25/17 09:54 Pulse Rate 87 04/25/17 09:54 Respiratory Rate 18 04/25/17 09:54 Blood Pressure 90/57 04/25/17 09:54 O2 Sat by Pulse Oximetry (%) Laboratory Last Values WBC 4.2 K/mm3 (4.0-10.0) 04/22/17 15:30 RBC 3.38 M/mm3 (4.00-5.60) L 04/22/17 15:30 Hgb 11.7 GM/dL (11.7-16.9) 04/22/17 15:30 Hct 34.6 % (35.4-49) L 04/22/17 15:30 MCV 102.5 fl (80-96) H 04/22/17 15:30 MCH 34.8 pg (25.7-33.7) H 04/22/17 15:30 MCHC 33.9 g/dl (32.0-35.9) 04/22/17 15:30 RDW 12.8 % (11.9-15.9) 04/22/17 15:30 Plt Count 393 K/MM3 (134-434) D 04/22/17 15:30 MPV 7.9 fl (7.5-11.1) 04/22/17 15:30 Sodium 133 mmol/L (136-145) L 04/22/17 15:30 Potassium 4.1 mmol/L (3.5-5.1) 04/22/17 15:30 Chloride 98 mmol/L (98-107) 04/22/17 15:30 Carbon Dioxide 29 mmol/L (21-32) 04/22/17 15:30 Anion Gap 6 (8-16) L 04/22/17 15:30 BUN 12 mg/dL (7-18) D 04/22/17 15:30 Creatinine 0.8 mg/dL (0.7-1.3) 04/22/17 15:30 Creat Clearance w eGFR > 60 (>60) 04/22/17 15:30 Random Glucose 115 mg/dL (74-106) H 04/22/17 15:30 Calcium 9.1 mg/dL (8.5-10.1) 04/22/17 15:30 Total Bilirubin 0.8 mg/dL (0.2-1.0) D 04/22/17 15:30 AST 395 U/L (15-37) H D 04/22/17 15:30 ALT 212 U/L (12-78) H 04/22/17 15:30 Alkaline Phosphatase 116 U/L (45-117) D 04/22/17 15:30 Total Protein 9.2 g/dl (6.4-8.2) H 04/22/17 15:30 Albumin 3.5 g/dl (3.4-5.0) 04/22/17 15:30 Urine Color Ltyellow 04/22/17 22:40 Urine Appearance Clear 04/22/17 22:40 Urine pH 7.0 (5.0-8.0) 04/22/17 22:40 Ur Specific [place] 1.013 (1.001-1.035) 04/22/17 22:40 Urine Protein Negative (NEGATIVE) 04/22/17 22:40 Urine Glucose (UA) Negative (NEGATIVE) 04/22/17 22:40 Urine Ketones Negative (NEGATIVE) 04/22/17 22:40 Urine Blood Negative (NEGATIVE) 04/22/17 22:40 Urine Nitrite Negative (NEGATIVE) 04/22/17 22:40 Urine Bilirubin Negative (NEGATIVE) 04/22/17 22:40 Urine Urobilinogen 2.0 mg/dL (0.2-1.0) 04/22/17 22:40 Ur Leukocyte Esterase Negative (NEGATIVE) 04/22/17 22:40 RPR Titer Nonreactive (NONREACTIVE) 04/22/17 15:30 Assessment: 04/25/17 10:16 WITHDRAWAL SX Plan: CONTINUE DETOX
[2017-04-25] MEDS: chlordiazePOXIDE HCL 10 MG CAPSULE PO SCH ×2 (18:25→22:24)
[2017-04-25] MEDS: ACETAMINOPHEN 325 MG TABLET (FP) PO PRN (18:26)
[2017-04-25] MEDS: THIAMINE HCL 100 MG TABLET (FP) PO SCH (22:25)
[2017-04-26] MEDS: CEPHALEXIN MONOHYDRATE 250 MG CAPSULE (FP) PO SCH (00:09)
[2017-04-26] MEDS: chlordiazePOXIDE HCL 10 MG CAPSULE PO SCH (05:48)
[2017-04-26] MEDS: METHADONE HCL 40 MG DISPERSABLE TABLET PO SCH (05:48)
[2017-04-26 06:27] VITALS: BP 91/64; PULSE 64; TEMP 97.2
--- NOTE | 2017-04-26 10:07 | DS ---
[facility] Detox Discharge Summary Admission Date: 04/22/17 Discharge Date: 04/26/17 - History Present History: Alcohol Dependence, Cocaine Dependence, MMTP Additional Comments: DETOX COMPLETED. ALERT O X3. NAD. PT FORGOT THE NAME OF HIS PMD WHEN ASKED AND SAYS "I'LL FIND IT WHEN I GET OUTSIDE'. PT INSTRUCTED TO FOLLOW UP WITH HIS PCP FOR MEDICAL MANAGEMENT NEEDED. PT GOING BACK TO HIS MMTP/OPD Pertinent Past History: SEE DX BELOW - Physical Exam Results Vital Signs: Vital Signs Temperature 97.2 F L 04/26/17 06:26 Pulse Rate 64 04/26/17 06:26 Respiratory Rate 18 04/26/17 06:26 Blood Pressure 91/64 04/26/17 06:26 O2 Sat by Pulse Oximetry (%) Pertinent Admission Physical Exam Findings: WITHDRAWAL SX Laboratory Last Values WBC 4.2 K/mm3 (4.0-10.0) 04/22/17 15:30 RBC 3.38 M/mm3 (4.00-5.60) L 04/22/17 15:30 Hgb 11.7 GM/dL (11.7-16.9) 04/22/17 15:30 Hct 34.6 % (35.4-49) L 04/22/17 15:30 MCV 102.5 fl (80-96) H 04/22/17 15:30 MCH 34.8 pg (25.7-33.7) H 04/22/17 15:30 MCHC 33.9 g/dl (32.0-35.9) 04/22/17 15:30 RDW 12.8 % (11.9-15.9) 04/22/17 15:30 Plt Count 393 K/MM3 (134-434) D 04/22/17 15:30 MPV 7.9 fl (7.5-11.1) 04/22/17 15:30 Sodium 133 mmol/L (136-145) L 04/22/17 15:30 Potassium 4.1 mmol/L (3.5-5.1) 04/22/17 15:30 Chloride 98 mmol/L (98-107) 04/22/17 15:30 Carbon Dioxide 29 mmol/L (21-32) 04/22/17 15:30 Anion Gap 6 (8-16) L 04/22/17 15:30 BUN 12 mg/dL (7-18) D 04/22/17 15:30 Creatinine 0.8 mg/dL (0.7-1.3) 04/22/17 15:30 Creat Clearance w eGFR > 60 (>60) 04/22/17 15:30 Random Glucose 115 mg/dL (74-106) H 04/22/17 15:30 Calcium 9.1 mg/dL (8.5-10.1) 04/22/17 15:30 Total Bilirubin 0.8 mg/dL (0.2-1.0) D 04/22/17 15:30 AST 395 U/L (15-37) H D 04/22/17 15:30 ALT 212 U/L (12-78) H 04/22/17 15:30 Alkaline Phosphatase 116 U/L (45-117) D 04/22/17 15:30 Total Protein 9.2 g/dl (6.4-8.2) H 04/22/17 15:30 Albumin 3.5 g/dl (3.4-5.0) 04/22/17 15:30 Urine Color Ltyellow 04/22/17 22:40 Urine Appearance Clear 04/22/17 22:40 Urine pH 7.0 (5.0-8.0) 04/22/17 22:40 Ur Specific [place] 1.013 (1.001-1.035) 04/22/17 22:40 Urine Protein Negative (NEGATIVE) 04/22/17 22:40 Urine Glucose (UA) Negative (NEGATIVE) 04/22/17 22:40 Urine Ketones Negative (NEGATIVE) 04/22/17 22:40 Urine Blood Negative (NEGATIVE) 04/22/17 22:40 Urine Nitrite Negative (NEGATIVE) 04/22/17 22:40 Urine Bilirubin Negative (NEGATIVE) 04/22/17 22:40 Urine Urobilinogen 2.0 mg/dL (0.2-1.0) 04/22/17 22:40 Ur Leukocyte Esterase Negative (NEGATIVE) 04/22/17 22:40 RPR Titer Nonreactive (NONREACTIVE) 04/22/17 15:30 SKIN LESIONS RESOLVED/ INDEX FINGERS IMPROVED. - Treatment Hospital Course: Detox Protocol Followed, Detoxed Safely, Responded well, Discharged Condition Good - Medication Discharge Medications: Ambulatory Orders Diclofenac Sodium [Voltaren -] 75 mg PO BID PRN 04/06/17 Cephalexin [Keflex] 250 mg PO Q6H 04/22/17 - Diagnosis (1) Alcohol dependence with withdrawal, uncomplicated Current Visit: Yes Status: Acute (2) Methadone maintenance therapy patient Current Visit: Yes Status: Chronic (3) History of herpes genitalis Current Visit: Yes Status: Chronic (4) Rash and nonspecific skin eruption Current Visit: Yes Status: Acute (5) Scabies Current Visit: Yes Status: Acute (6) Frostbite with tissue necrosis of finger Current Visit: Yes Status: Acute Qualifiers: Encounter type: subsequent encounter (7) Seborrheic dermatitis Current Visit: Yes Status: Chronic - AMA Did Patient Leave Against Medical Advice: No
== END 2017-04-26 11:31 | disposition home or self-care (01) | DRG 773 ==
LOC: YASAS 09:48 → Y3N 14:25
PROVIDERS: ADMIT Internal Medicine; ATTEND Internal Medicine
PROC: HZ2ZZZZ Detoxification Services for Substance Abuse Treatment (ICD-10-PCS; principal; 2017-04-22)
DX: F11.20 Opioid dependence, uncomplicated (principal); F10.20 Alcohol dependence, uncomplicated; F14.20 Cocaine dependence, uncomplicated; F19.24 Other psychoactive substance dependence with psychoactive substance-induced mood disorder; R21 Rash and other nonspecific skin eruption; L21.9 Seborrheic dermatitis, unspecified; Z86.19 Personal history of other infectious and parasitic diseases; F31.9 Bipolar disorder, unspecified; T33.532A Superficial frostbite of left finger(s), initial encounter; T33.531A Superficial frostbite of right finger(s), initial encounter; X31.XXXA Exposure to excessive natural cold, initial encounter; Y93.89 Activity, other specified; Y92.89 Other specified places as the place of occurrence of the external cause; Y99.8 Other external cause status
CPT/HCPCS: 36415; 80053; 81003; 85027; 86593; 93005; 93010

== ENCOUNTER 2017-06-02 09:21 | Inpatient (IN) | payer OTHER ==
[2017-06-02 10:12] VITALS: BMI 23.3
--- NOTE | 2017-06-02 10:56 | HP ---
CIWA Score - CIWA Score Nausea/Vomitin Muscle Tremors: 3 Anxiety: 3 Agitation: 2 Paroxysmal Sweats: 1-Minimal Palms Moist Orientation: 0-Oriented Tacttile Disturbances: 2-Mild Itch/Numbness/Burn Auditory Disturbances: 2-Mild Harshness/Frighten Visual Disturbances: 1-Very Mild Sensitivity Headache: 2-Mild CIWA-Ar Total Score: 19 Admission ROS BHS - HPI Chief Complaint: I NEED HELP TO STOP DRINKING ALCOHOL Allergies/Adverse Reactions: Allergies Allergy/AdvReac Type Severity Reaction Status Date / Time amoxicillin [Amoxicillin] AdvReac Severe Vomiting Verified 06/02/17 11:15 History of Present Illness: THIS 47 YEARS OLD MALE WITH ALCOHOL AND COCAINE DEPENDENCE,SEEKING DETOX,LAST TREATMENT 04/22/17 TO 04/26/17 SYNCOPE ALCOHOL RELATED DENIED MEDICAL PROBLEM FROSTBITE LEFT INDEX 3 WEEKS AGO ,SEEN AT TREATED AT [facility],HAS APPOINTMENT FOR FOLLOW UP MMTP 40 MGS/DAY,LAST MEDICATED FRI 05/31/17 NO SIGNIFICANT PERIOD OF SOBRIETY Exam Limitations: No Limitations - Ebola screening Have you traveled outside of the country in the last 21 days: No (N) Have you had contact with anyone from an Ebola affected area: No Have you been sick,other than usual withdrawal symptoms: No Do you have a fever: No - Review of Systems Constitutional: Loss of Appetite, Malaise, Night Sweats, Changes in sleep, Weakness EENT: reports: Nose Congestion Respiratory: reports: No Symptoms reported Cardiac: reports: No Symptoms Reported GI: reports: Diarrhea, Nausea, Vomiting, Abdominal cramping : reports: No Symptoms Reported Musculoskeletal: reports: Back Pain, Muscle Pain Integumentary: reports: Dryness, Other (JACOME BITE LEFT INDEX FINGER 3 WEEKS AGO WITH DRY GANGRENE TIP OF LEFT INDEX FINER) Neuro: reports: Headache, Tremors Endocrine: reports: No Symptoms Reported Hematology: reports: No Symptoms Reported Psychiatric: reports: No Sypmtoms Reported, Judgement Intact, Mood/Affect Appropiate, Orientated x3 Patient History - Patient Medical History Hx Anemia: No Hx Asthma: No Hx Chronic Obstructive Pulmonary Disease (COPD): No Hx Cancer: No Hx Cardiac Disorders: No Hx Congestive Heart Failure: No Hx Hypertension: No Hx Hypercholesterolemia: No HX Cerebrovascular Accident: No Hx Seizures: No Hx Dementia: No Hx Diabetes: No Hx Gastrointestinal Disorders: No Hx Liver Disease: No Hx Genitourinary Disorders: No Hx Sexually Transmitted Disorders: No Hx Renal Disease (ESRD): No Hx Thyroid Disease: No Hx Human Immunodeficiency Virus (HIV): No Hx Hepatitis C: No Hx Depression: No Hx Suicide Attempt: No Hx Bipolar Disorder: Yes (was on seroquel, non-compliant) Hx Schizophrenia: No Other Medical History: NO SUICIDAL,NO HOMICIDAL - Patient Surgical History Past Surgical History: Yes Hx Neurologic Surgery: No Hx Cataract Extraction: No Hx Cardiac Surgery: No Hx Lung Surgery: No Hx Breast Surgery: No Hx Breast Biopsy: No Hx Abdominal Surgery: No Hx Appendectomy: No Hx Cholecystectomy: No Hx Genitourinary Surgery: No Hx Section: No Hx Orthopedic Surgery: No Other Surgical History: repair of laceration of scalp due to fall in intoxication 3 yrs ago. Anesthesia Reaction: No - PPD History Previous Implant?: Yes Documented Results: Negative w/proof Date: 03/12/17 Results: 0 mm PPD to be Administered?: No - Smoking Cessation Smoking history: Current every day smoker Have you smoked in the past 12 months: Yes Aproximately how many cigarettes per day: 10 Hx Chewing Tobacco Use: No Initiated information on smoking cessation: Yes 'Breaking Loose' booklet given: 06/02/17 - Substance & Tx. History Hx Alcohol Use: Yes Hx Substance Use: Yes Substance Use Type: Alcohol, Cocaine Hx Substance Use Treatment: Yes ([facility] 04/22/17 TO 04/26/17) - Substances Abused Cocaine Route: Smoking Frequency: 1-2 times per week Amount used: $10 Age of first use: 16 Date of Last Use: 05/26/17 ETOH Route: Oral Frequency: Daily Amount used: 6PK -12OZ BEER, 0.5 [place] Age of first use: 10 Date of Last Use: 06/02/17 Family Disease History - Family Disease History Family Disease History: Diabetes: Grandparent (GRANDMOTHER-ALCOHOLISM; G-FATHER- PROSTATE CA--.), Mother (HTN-), CA: Grandparent, Other: Father ( no contact - alcohol), Mother, Brother (healthy), Sister (healthy) Admission Physical Exam BHS - Vital Signs Vital Signs: Vital Signs - 24 hr 06/02/17 10:10 Temperature 97.9 F Pulse Rate 72 Respiratory 19 Rate Blood Pressure 150/89 - Physical General Appearance: Yes: Moderate Distress, Tremorous, Irritable, Sweating, Anxious HEENTM: Yes: Normal ENT Inspection, OSMAN, Pharynx Normal Respiratory: Yes: Lungs Clear, Normal Breath Sounds, No Respiratory Distress Neck: Yes: Within Normal Limits, Supple, Trachea in good position Breast: Yes: Within Normal Limits Cardiology: Yes: Within Normal Limits, Regular Rhythm, Regular Rate, S1, S2 Abdominal: Yes: Within Normal Limits, Normal Bowel Sounds, Non Tender, Flat, Soft Genitourinary: Yes: Within Normal Limits Back: Yes: Muscle Spasm Musculoskeletal: Yes: Within Normal Limits, full range of Motion, Back pain Extremities: Yes: Tremors (FROSTBITE LEFT INDEX WITH DRY GANGRENE AT TIP SEEN AND TREATED AT [facility]) Neurological: Yes: parcel post weigher II-XII NML intact, Fully Oriented, Alert, Motor Strength 5/5 Integumentary: Yes: Dry, Rash Lymphatic: Yes: Within Normal Limits - Diagnostic (1) Alcohol dependence with withdrawal, uncomplicated Current Visit: No Status: Acute (2) Cocaine dependence, uncomplicated Current Visit: No Status: Acute (3) Depression Current Visit: No Status: Acute (4) Drug-induced mood disorder Current Visit: No Status: Acute (5) Frequent falls Current Visit: No Status: Acute (6) Frostbite with tissue necrosis of finger Current Visit: No Status: Acute Qualifiers: Encounter type: subsequent encounter Comment: BOTH INDEX FINGERS (7) Nicotine dependence Current Visit: No Status: Acute Qualifiers: Nicotine product type: cigarettes Substance use status: uncomplicated Qualified Code(s): F17.210 - Nicotine dependence, cigarettes, uncomplicated (8) Methadone maintenance therapy patient Current Visit: No Status: Chronic (9) Contact dermatitis Current Visit: Yes Status: Acute Cleared for Admission S - Detox or Rehab [facility] Level of Care: Medically Managed Detox Regimen/Protocol: Librium [facility] Breath Alcohol Content Breath Alcohol Content: 0.098 Urine Drug Screen - Results Drug Screen Negative: No Urine Drug Screen Results: GENIA-Cocaine, BZO-Benzodiazepines, MTD-Methadone
[2017-06-02] MEDS ORDERED: NICOTINE POLACRILEX 2 MG GUM BUC PRN (11:24)
[2017-06-02] MEDS ORDERED: ACETAMINOPHEN 325 MG TABLET (FP) PO PRN (11:24)
[2017-06-02] MEDS ORDERED: guaiFENesin/D-METHORPHAN HB 10 ML UNIT-DOSE CUPS PO PRN (11:24)
[2017-06-02] MEDS ORDERED: MAGNESIUM CITRATE 300 ML BOTTLE PO PRN (11:24)
[2017-06-02] MEDS ORDERED: LOPERAMIDE HCL 2 MG CAPSULE PO PRN (11:24)
[2017-06-02] MEDS ORDERED: hydrOXYzine PAMOATE 50 MG CAPSULE (FP) PO PRN (11:24)
[2017-06-02] MEDS ORDERED: P-EPHED 60MG/TRIPROLIDI 2.5MG TABLET PO PRN (11:24)
[2017-06-02] MEDS ORDERED: MENTHOL/PHENOL 1 EACH UD MM PRN (11:24)
[2017-06-02] MEDS ORDERED: MAGNESIUM HYDROX 2400MG/30ML ORAL SUSPENSION 30 ML CUP PO PRN (11:24)
[2017-06-02] MEDS ORDERED: MAG HYDROX/AL HYDROX/SIMETH 30 ML UNIT-DOSE CUP PO PRN (11:24)
[2017-06-02] MEDS ORDERED: chlordiazePOXIDE HCL 25 MG CAPSULE PO ONE (12:30)
[2017-06-02] MEDS ORDERED: METHADONE HCL 10 MG TABLET PO ONE (13:00)
[2017-06-02] MEDS ORDERED: diphenhydrAMINE HCL 25 MG CAPSULE (FP) PO PRN (13:30)
[2017-06-02] MEDS: NICOTINE 21 MG/24 HOURS TOPICAL PATCH TD SCH (14:03)
[2017-06-02] MEDS: HYDROCORTISONE 1% TOPICAL CREAM 30 GM TUBE TP SCH ×2 (14:06→22:25)
[2017-06-02] MEDS: SILVER SULFADIAZINE 1% TOP CREAM 50 GM JAR TP SCH (14:06)
[2017-06-02 15:17] LABS: URINE APPEARANCE CLEAR; URINE BILIRUBIN NEGATIVE (NEGATIVE); URINE BLOOD NEGATIVE (NEGATIVE); URINE COLOR LTYELLOW; URINE GLUCOSE (UA) NEGATIVE (NEGATIVE); URINE KETONE NEGATIVE (NEGATIVE); URINE LEUK ESTERASE NEGATIVE (NEGATIVE); URINE NITRITE NEGATIVE (NEGATIVE); URINE PROTEIN NEGATIVE (NEGATIVE); URINE UROBILINOGEN NEGATIVE mg/dL (0.2-1.0)
[2017-06-02] MEDS: chlordiazePOXIDE HCL 25 MG CAPSULE PO SCH ×2 (17:54→22:25)
[2017-06-02] MEDS: THIAMINE HCL 100 MG TABLET (FP) PO SCH (22:25)
[2017-06-02] MEDS: IBUPROFEN 400 MG TABLET (FP) PO PRN (22:27)
[2017-06-03] MEDS: chlordiazePOXIDE HCL 25 MG CAPSULE PO SCH ×4 (05:43→22:24)
[2017-06-03] MEDS ORDERED: METHADONE HCL 40 MG DISPERSABLE TABLET PO ONE (09:00)
[2017-06-03 10:15] LABS: HEMATOCRIT 36.5 % (35.4-49); HEMOGLOBIN 12.5 GM/dL (11.7-16.9); MCH 34.4 pg (25.7-33.7); MCHC 34.2 g/dl (32.0-35.9); MEAN CELL VOLUME 100.6 fl (80-96); MEAN PLT VOLUME 7.5 fl (7.5-11.1); PLATELET COUNT 289 K/MM3 (134-434); RBC 3.63 M/mm3 (4.00-5.60); RDW 14.2 % (11.9-15.9); WHITE BLOOD COUNT 4.7 K/mm3 (4.0-10.0)
[2017-06-03 10:23] LABS: ALBUMIN 3.6 g/dl (3.4-5.0); ALK PHOS 75 U/L (45-117); ANION GAP 5 (8-16); BILIRUBIN,TOTAL 0.7 mg/dL (0.2-1.0); BLOOD UREA NITROGEN 12 mg/dL (7-18); CHLORIDE 98 mmol/L (98-107); CO2 31 mmol/L (21-32); CREATININE 0.8 mg/dL (0.7-1.3); GLUCOSE,RANDOM 92 mg/dL (74-106); POTASSIUM 4.1 mmol/L (3.5-5.1); SGOT/AST 241 U/L (15-37); SGPT/ALT 106 U/L (12-78); SODIUM 134 mmol/L (136-145); TOT PROT 8.6 g/dl (6.4-8.2)
[2017-06-03] MEDS: PRENATAL VITAMINS W/ FOLIC ACID TABLET (FP) PO SCH (10:30)
[2017-06-03] MEDS: SILVER SULFADIAZINE 1% TOP CREAM 50 GM JAR TP SCH ×2 (10:30→22:24)
[2017-06-03] MEDS: HYDROCORTISONE 1% TOPICAL CREAM 30 GM TUBE TP SCH ×2 (10:31→22:25)
[2017-06-03] MEDS: NICOTINE 21 MG/24 HOURS TOPICAL PATCH TD SCH (10:32)
--- NOTE | 2017-06-03 10:50 | EKG ---
Test Reason : Blood Pressure : / mmHG Vent. Rate : 080 BPM Atrial Rate : 080 BPM P-R Int : 128 ms QRS Dur : 102 ms QT Int : 406 ms P-R-T Axes : 034 079 036 degrees QTc Int : 468 ms NORMAL SINUS RHYTHM NORMAL ECG WHEN COMPARED WITH ECG OF 22-APR-2017 18:00, NO SIGNIFICANT CHANGE WAS FOUND Confirmed by ANGELA FOWLER MD ([id number]) on 06/03/2017 10:49:42 AM Referred By: Confirmed By:ANGELA FOWLER MD
--- NOTE | 2017-06-03 11:04 | PN ---
S CIWA - CIWA Score Nausea/Vomitin Muscle Tremors: 3 Anxiety: 3 Agitation: 3 Paroxysmal Sweats: 1-Minimal Palms Moist Orientation: 0-Oriented Tacttile Disturbances: 1-Very Mild Itch/Numbness Auditory Disturbances: 1-Very Mild Visual Disturbances: 0-None Headache: 2-Mild CIWA-Ar Total Score: 17 BHS Progress Note (SOAP) Subjective: ALERT,IRRITABLE,ANXIOUS,INTERRUPTED SLEEP,TREMOR Objective: 06/03/17 11:01 Vital Signs Temperature 97.9 F 06/03/17 06:00 Pulse Rate 60 06/03/17 06:00 Respiratory Rate 18 06/03/17 06:00 Blood Pressure 115/57 06/03/17 06:00 O2 Sat by Pulse Oximetry (%) EKG NSR,NORMAL ECG Laboratory Last Values WBC 4.7 K/mm3 (4.0-10.0) 06/03/17 07:00 RBC 3.63 M/mm3 (4.00-5.60) L 06/03/17 07:00 Hgb 12.5 GM/dL (11.7-16.9) 06/03/17 07:00 Hct 36.5 % (35.4-49) 06/03/17 07:00 MCV 100.6 fl (80-96) H 06/03/17 07:00 MCH 34.4 pg (25.7-33.7) H 06/03/17 07:00 MCHC 34.2 g/dl (32.0-35.9) 06/03/17 07:00 RDW 14.2 % (11.9-15.9) D 06/03/17 07:00 Plt Count 289 K/MM3 (134-434) D 06/03/17 07:00 MPV 7.5 fl (7.5-11.1) 06/03/17 07:00 Sodium 134 mmol/L (136-145) L 06/03/17 07:00 Potassium 4.1 mmol/L (3.5-5.1) 06/03/17 07:00 Chloride 98 mmol/L (98-107) 06/03/17 07:00 Carbon Dioxide 31 mmol/L (21-32) 06/03/17 07:00 Anion Gap 5 (8-16) L 06/03/17 07:00 BUN 12 mg/dL (7-18) 06/03/17 07:00 Creatinine 0.8 mg/dL (0.7-1.3) 06/03/17 07:00 Creat Clearance w eGFR > 60 (>60) 06/03/17 07:00 Random Glucose 92 mg/dL (74-106) 06/03/17 07:00 Calcium 9.0 mg/dL (8.5-10.1) 06/03/17 07:00 Total Bilirubin 0.7 mg/dL (0.2-1.0) 06/03/17 07:00 AST 241 U/L (15-37) H D 06/03/17 07:00 ALT 106 U/L (12-78) H D 06/03/17 07:00 Alkaline Phosphatase 75 U/L (45-117) D 06/03/17 07:00 Total Protein 8.6 g/dl (6.4-8.2) H 06/03/17 07:00 Albumin 3.6 g/dl (3.4-5.0) 06/03/17 07:00 Urine Color Ltyellow 06/02/17 15:01 Urine Appearance Clear 06/02/17 15:01 Urine pH 8.0 (5.0-8.0) 06/02/17 15:01 Ur Specific [place] 1.012 (1.001-1.035) 06/02/17 15:01 Urine Protein Negative (NEGATIVE) 06/02/17 15:01 Urine Glucose (UA) Negative (NEGATIVE) 06/02/17 15:01 Urine Ketones Negative (NEGATIVE) 06/02/17 15:01 Urine Blood Negative (NEGATIVE) 06/02/17 15:01 Urine Nitrite Negative (NEGATIVE) 06/02/17 15:01 Urine Bilirubin Negative (NEGATIVE) 06/02/17 15:01 Urine Urobilinogen Negative mg/dL (0.2-1.0) 06/02/17 15:01 Ur Leukocyte Esterase Negative (NEGATIVE) 06/02/17 15:01 06/03/17 11:03 LAB PENDING Assessment: 06/03/17 11:03 WITHDRAWAL SYMPTOM Plan: CONTINUE DETOX,D/C TYLENOL DUE TO ELEVATION OF AST,ALT,REPEAT ALT,AST,INR IN AM
[2017-06-03] MEDS: chlordiazePOXIDE HCL 25 MG CAPSULE PO PRN (15:42)
[2017-06-03] MEDS: IBUPROFEN 400 MG TABLET (FP) PO PRN (16:56)
--- NOTE | 2017-06-03 17:10 | CONSULT ---
[facility] Psychiatric Consult - Data Date of interview: 06/03/17 Admission source: [facility] Identifying data: Readmission to [facility] for this 46 y/o male seeking detox treatment on for opioid and alcohol dependence.Patient is single without children,domiciled,unemployed and supported on Public Assistance. Substance Abuse History: Confirmed by patient in this interview.See current [facility] report for details : Smoking history: Current every day smoker. Have you smoked in the past 12 months: Yes. Aproximately how many cigarettes per day: 10. Hx Chewing Tobacco Use: No. Initiated information on smoking cessation: Yes. 'Breaking Loose' booklet given: 06/02/17. - Substance & Tx. History. Hx Alcohol Use: Yes. Hx Substance Use: Yes. Substance Use Type: Alcohol, Cocaine. Hx Substance Use Treatment: Yes ([facility] 04/22/17 TO 04/26/17). - Substances Abused. Cocaine. Route: Smoking. Frequency: 1-2 times per week. Amount used: $10. Age of first use: 16. Date of Last Use: 05/26/17. * * ETOH. Route: Oral. Frequency: Daily. Amount used: 6PK -12OZ BEER, 0.5 [place]. Age of first use: 10. Date of Last Use: 06/02/17 Medical History: No change in medical profile since last encounter in April 2017 : history of surgical care for severe laceration of scalp (consequence of a fall during episode of alcohol intoxication),herpes genitalis,seborrheic dermatitis,migraine headaches and frosbite (two fingers in left hand). Psychiatric History: No history of psychiatric hospitalizations.No current use of psychotropic medications with the exception of methadone (40 mg/day at the [facility] MMTP program in [facility]).Diagnosed,in the past,with Bipolar Disorder and previously prescribed seroquel.Non adherent for several months.No OPD care.Mr Licea denies history of suicide attempts.In this interview,the patient complains of chronic insomnia and requests the addition od zolpidem at bedtime. Physical/Sexual Abuse/Trauma History: Patient denies. Additional Comment: Urine Drug Screen Results: GENIA-Cocaine, BZO-Benzodiazepines , MTD-Methadone.Noted. Mental Status Exam - Mental Status Exam Alert and Oriented to: Time, Place, Person Cognitive Function: Good Patient Appearance: Well Groomed Mood: Hopeful, Euthymic Affect: Normal Range Patient Behavior: Appropriate, Cooperative Speech Pattern: Clear, Appropriate Voice Loudness: Normal Thought Process: Goal Oriented Thought Disorder: Not Present Hallucinations: Denies Suicidal Ideation: Denies Homicidal Ideation: Denies Insight/Judgement: Poor Sleep: Poorly, Difficulty falling asleep Appetite: Good Muscle strength/Tone: Normal Gait/Station: Normal Psychiatric Findings - Problem List ([place] 1, 2,3) (1) Opioid dependence on agonist therapy Current Visit: Yes Status: Acute (2) Alcohol dependence with withdrawal, uncomplicated Current Visit: Yes Status: Acute (3) Cocaine dependence, uncomplicated Current Visit: Yes Status: Acute (4) Nicotine dependence Current Visit: Yes Status: Acute Qualifiers: Nicotine product type: cigarettes Substance use status: uncomplicated Qualified Code(s): F17.210 - Nicotine dependence, cigarettes, uncomplicated (5) Insomnia Current Visit: Yes Status: Acute - Initial Treatment Plan Initial Treatment Plan: Psychoeducation.Psychoeducation.Sleep hygiene.Detoxification in progress.Ambien 10 mg po hs prn.Patient is informed of the risk of parasomnias (sleep-walking).Conent (verbal) given.Observation.
[2017-06-03] MEDS: THIAMINE HCL 100 MG TABLET (FP) PO SCH (22:24)
[2017-06-04] MEDS: IBUPROFEN 400 MG TABLET (FP) PO PRN ×2 (00:59→14:17)
[2017-06-04] MEDS: ZOLPIDEM TARTRATE 10 MG TABLET (PARK CARE ONLY) PO PRN ×2 (00:59→22:24)
[2017-06-04] MEDS: chlordiazePOXIDE HCL 25 MG CAPSULE PO PRN (00:59)
[2017-06-04] MEDS ORDERED: METHADONE HCL 40 MG DISPERSABLE TABLET PO SCH (06:00)
[2017-06-04] MEDS: chlordiazePOXIDE HCL 25 MG CAPSULE PO SCH ×2 (06:22→10:41)
[2017-06-04] MEDS: METHADONE HCL 40 MG DISPERSABLE TABLET PO SCH (06:22)
--- NOTE | 2017-06-04 10:01 | PN ---
BHS CIWA - CIWA Score Nausea/Vomitin Muscle Tremors: 3 Anxiety: 3 Agitation: 2 Paroxysmal Sweats: 1-Minimal Palms Moist Orientation: 0-Oriented Tacttile Disturbances: 1-Very Mild Itch/Numbness Auditory Disturbances: 1-Very Mild Visual Disturbances: 0-None Headache: 2-Mild CIWA-Ar Total Score: 16 BHS Progress Note (SOAP) Subjective: ALERT,IRRITABLE,ANXIOUS,INTERRUPTED SLEEP,TREMOR,PAIN IN THE BODY Objective: 06/04/17 09:58 Vital Signs Temperature 97.9 F 06/04/17 06:00 Pulse Rate 85 06/04/17 06:00 Respiratory Rate 18 06/04/17 06:00 Blood Pressure 91/53 06/04/17 06:00 O2 Sat by Pulse Oximetry (%) 06/04/17 10:00 REPEAT ALT,AST,INR PENDING Assessment: 06/04/17 10:00 WITHDRAWAL SYMPTOM Plan: CONTINUE DETOX
[2017-06-04 10:25] LABS: INR 1.04 (0.82-1.09); PROTHROMBIN TIME (PATIENT) 11.7 SEC (9.98-11.88)
[2017-06-04] MEDS: PRENATAL VITAMINS W/ FOLIC ACID TABLET (FP) PO SCH (10:40)
[2017-06-04] MEDS: SILVER SULFADIAZINE 1% TOP CREAM 50 GM JAR TP SCH ×3 (10:41→22:55)
[2017-06-04] MEDS: HYDROCORTISONE 1% TOPICAL CREAM 30 GM TUBE TP SCH ×2 (10:42→22:25)
[2017-06-04] MEDS: NICOTINE 21 MG/24 HOURS TOPICAL PATCH TD SCH (10:45)
[2017-06-04 11:05] LABS: SGOT/AST 190 U/L (15-37); SGPT/ALT 108 U/L (12-78)
[2017-06-04] MEDS: chlordiazePOXIDE 5 MG CAPSULE PO SCH ×2 (17:55→22:24)
[2017-06-04] MEDS: THIAMINE HCL 100 MG TABLET (FP) PO SCH (22:24)
[2017-06-05] MEDS: chlordiazePOXIDE HCL 25 MG CAPSULE PO PRN (01:15)
[2017-06-05] MEDS: IBUPROFEN 400 MG TABLET (FP) PO PRN (03:41)
[2017-06-05] MEDS: chlordiazePOXIDE 5 MG CAPSULE PO SCH ×2 (06:00→10:26)
[2017-06-05] MEDS: METHADONE HCL 40 MG DISPERSABLE TABLET PO SCH (06:00)
--- NOTE | 2017-06-05 09:59 | PN ---
S Progress Note (SOAP) Subjective: ALERT,IRRITABLE,ANXIOUS,INTERRUPTED SLEEP Objective: 06/05/17 09:58 Vital Signs Temperature 98.2 F 06/05/17 06:20 Pulse Rate 86 06/05/17 06:20 Respiratory Rate 16 06/05/17 06:20 Blood Pressure 94/69 06/05/17 06:20 O2 Sat by Pulse Oximetry (%) Assessment: 06/05/17 09:58 WITHDRAWAL SYMPTOM Plan: CONTINUE DETOX,DISCHARGE IN AM
[2017-06-05] MEDS: NICOTINE 21 MG/24 HOURS TOPICAL PATCH TD SCH (10:26)
[2017-06-05] MEDS: PRENATAL VITAMINS W/ FOLIC ACID TABLET (FP) PO SCH (10:26)
[2017-06-05] MEDS: HYDROCORTISONE 1% TOPICAL CREAM 30 GM TUBE TP SCH ×2 (10:26→22:15)
[2017-06-05] MEDS: SILVER SULFADIAZINE 1% TOP CREAM 50 GM JAR TP SCH ×2 (10:27→22:55)
[2017-06-05] MEDS: chlordiazePOXIDE HCL 10 MG CAPSULE PO SCH ×2 (17:55→22:14)
[2017-06-05] MEDS: ZOLPIDEM TARTRATE 10 MG TABLET (PARK CARE ONLY) PO PRN (22:16)
[2017-06-05] MEDS: THIAMINE HCL 100 MG TABLET (FP) PO SCH (22:55)
[2017-06-06] MEDS: METHADONE HCL 40 MG DISPERSABLE TABLET PO SCH (05:13)
[2017-06-06] MEDS: chlordiazePOXIDE HCL 10 MG CAPSULE PO SCH ×2 (05:13→10:11)
[2017-06-06 06:10] VITALS: BP 129/72; PULSE 64; TEMP 97.4
--- NOTE | 2017-06-06 08:02 | PN ---
S Progress Note (SOAP) Subjective: ALERT,NO COMPLAINT Objective: 06/06/17 08:00 Vital Signs Temperature 97.4 F L 06/06/17 06:09 Pulse Rate 64 06/06/17 06:09 Respiratory Rate 18 06/06/17 06:09 Blood Pressure 129/72 06/06/17 06:09 O2 Sat by Pulse Oximetry (%) Assessment: 06/06/17 08:00 DETOX COMPLETED,NO WITHDRAWAL SYMPTOM [facility]FOLLOW UP WITH AFTER CARE PROGRAM ARRANGEMENT
--- NOTE | 2017-06-06 08:06 | DS ---
[facility] Detox Discharge Summary Admission Date: 06/02/17 Discharge Date: 06/06/17 - History Present History: Alcohol Dependence, Cocaine Dependence, MMTP Additional Comments: FOLLOW UP WITH AFTER CARE PROGRAM ARRANGEMENT AND FOLLOW UP WITH [facility] FRO FROSTBITE AND GANGRENE OF TIP OF LEFT INDEX FINGER Pertinent Past History: [place] FROSTBITE WITH GANGRENE LEFT INDEX NICOTINE DEPENDENCE CONTACT DERMATITIS - Physical Exam Results Vital Signs: Vital Signs Temperature 97.4 F L 06/06/17 06:09 Pulse Rate 64 06/06/17 06:09 Respiratory Rate 18 06/06/17 06:09 Blood Pressure 129/72 06/06/17 06:09 O2 Sat by Pulse Oximetry (%) Pertinent Admission Physical Exam Findings: WITHDRAWAL SIGNS AND SYMPTOM - Treatment Hospital Course: Detox Protocol Followed, Detoxed Safely, Responded well, Discharged Condition Good Patient has Accepted a Rehab Referral to: DECLINED - Medication Discharge Medications: Ambulatory Orders NK [No Known Home Medication] 06/02/17 - Diagnosis (1) Alcohol dependence with withdrawal, uncomplicated Current Visit: Yes Status: Acute (2) Cocaine dependence, uncomplicated Current Visit: Yes Status: Acute (3) Depression Current Visit: No Status: Acute (4) Drug-induced mood disorder Current Visit: Yes Status: Acute (5) Frequent falls Current Visit: No Status: Acute (6) Frostbite with tissue necrosis of finger Current Visit: No Status: Acute Qualifiers: Encounter type: subsequent encounter (7) Nicotine dependence Current Visit: Yes Status: Acute Qualifiers: Nicotine product type: cigarettes Substance use status: uncomplicated Qualified Code(s): F17.210 - Nicotine dependence, cigarettes, uncomplicated (8) Methadone maintenance therapy patient Current Visit: No Status: Chronic (9) Contact dermatitis Current Visit: Yes Status: Acute - AMA Did Patient Leave Against Medical Advice: No
[2017-06-06] MEDS: HYDROCORTISONE 1% TOPICAL CREAM 30 GM TUBE TP SCH (09:55)
[2017-06-06] MEDS: NICOTINE 21 MG/24 HOURS TOPICAL PATCH TD SCH (09:55)
[2017-06-06] MEDS: SILVER SULFADIAZINE 1% TOP CREAM 50 GM JAR TP SCH (09:56)
[2017-06-06] MEDS: PRENATAL VITAMINS W/ FOLIC ACID TABLET (FP) PO SCH (09:56)
[2017-06-06] MEDS: IBUPROFEN 400 MG TABLET (FP) PO PRN (10:00)
== END 2017-06-06 09:50 | disposition home or self-care (01) | DRG 773 ==
LOC: YASAS 09:21 → Y6N 12:19
PROVIDERS: ADMIT Internal Medicine; ATTEND Internal Medicine
PROC: HZ2ZZZZ Detoxification Services for Substance Abuse Treatment (ICD-10-PCS; principal; 2017-06-02)
DX: F10.230 Alcohol dependence with withdrawal, uncomplicated (principal); F11.20 Opioid dependence, uncomplicated; F14.20 Cocaine dependence, uncomplicated; F17.210 Nicotine dependence, cigarettes, uncomplicated; F32.9 Major depressive disorder, single episode, unspecified; F19.24 Other psychoactive substance dependence with psychoactive substance-induced mood disorder; G47.00 Insomnia, unspecified; L25.9 Unspecified contact dermatitis, unspecified cause; R29.6 Repeated falls; T34.532 Frostbite with tissue necrosis of left finger(s); T34.531D Frostbite with tissue necrosis of right finger(s), subsequent encounter; X31.XXXD Exposure to excessive natural cold, subsequent encounter; Z87.438 Personal history of other diseases of male genital organs; Z88.1 Allergy status to other antibiotic agents; Z91.14 Patient's other noncompliance with medication regimen
CPT/HCPCS: 36415; 80053; 81003; 84450; 84460; 85027; 85610; 86593; 93005; 93010

== ENCOUNTER 2018-01-26 10:27 | Inpatient (IN) | payer OTHER ==
[2018-01-26 10:39] VITALS: BMI 23.6
--- NOTE | 2018-01-26 11:11 | HP ---
CIWA Score - CIWA Score Nausea/Vomitin Muscle Tremors: 2 Anxiety: 2 Agitation: 2 Paroxysmal Sweats: 1-Minimal Palms Moist Orientation: 0-Oriented Tacttile Disturbances: 1-Very Mild Itch/Numbness Auditory Disturbances: 1-Very Mild Visual Disturbances: 0-None Headache: 2-Mild CIWA-Ar Total Score: 13 Admission ROS BHS - HPI Chief Complaint: i need help help stop drinking alcohol and cocaine Allergies/Adverse Reactions: Allergies Allergy/AdvReac Type Severity Reaction Status Date / Time amoxicillin [Amoxicillin] AdvReac Severe Vomiting Verified 01/26/18 10:34 History of Present Illness: this 47 years old male with alcohol and cocaine dependence,seeking detox, withdrawal symptom,last detox 06/02/17 to 06/06/17 black out multiple admissions to detox,but keep relapsing mmtp 40 mgs/day,last medicated today,has a bottle to take home nicotine dependence anxiety,depression,insomnia no significant peroid of sobriety Exam Limitations: No Limitations - Ebola screening Have you traveled outside of the country in the last 21 days: No Have you been sick,other than usual withdrawal symptoms: No - Review of Systems Constitutional: Loss of Appetite, Malaise, Night Sweats, Changes in sleep, Weakness EENT: reports: Nose Congestion Respiratory: reports: No Symptoms reported Cardiac: reports: No Symptoms Reported GI: reports: Nausea, Poor Appetite, Abdominal cramping : reports: No Symptoms Reported Musculoskeletal: reports: Back Pain, Muscle Pain Integumentary: reports: Dryness Neuro: reports: Headache, Tremors Endocrine: reports: No Symptoms Reported Hematology: reports: No Symptoms Reported Psychiatric: reports: No Sypmtoms Reported, Judgement Intact, Mood/Affect Appropiate, Orientated x3, Anxious, Depressed (insomnia) Patient History - Patient Medical History Hx Anemia: No Hx Asthma: No Hx Chronic Obstructive Pulmonary Disease (COPD): No Hx Cancer: No Hx Cardiac Disorders: No Hx Congestive Heart Failure: No Hx Hypertension: No Hx Hypercholesterolemia: No HX Cerebrovascular Accident: No Hx Seizures: No Hx Dementia: No Hx Diabetes: No Hx Gastrointestinal Disorders: No Hx Liver Disease: No Hx Genitourinary Disorders: No Hx Sexually Transmitted Disorders: No Hx Renal Disease (ESRD): No Hx Thyroid Disease: No Hx Human Immunodeficiency Virus (HIV): No Hx Hepatitis C: No Hx Depression: Yes (no med) Hx Suicide Attempt: No Hx Bipolar Disorder: Yes (was on seroquel, non-compliant) Hx Schizophrenia: No Other Medical History: no suicidal,no homicidal - Patient Surgical History Past Surgical History: Yes Hx Neurologic Surgery: No Hx Cataract Extraction: No Hx Cardiac Surgery: No Hx Lung Surgery: No Hx Breast Surgery: No Hx Breast Biopsy: No Hx Abdominal Surgery: No Hx Appendectomy: No Hx Cholecystectomy: No Hx Genitourinary Surgery: No Hx Section: No Hx Orthopedic Surgery: No Other Surgical History: repair of laceration of scalp due to fall in intoxication a couple years ag Anesthesia Reaction: No - PPD History Previous Implant?: Yes Documented Results: Negative w/proof Implanted On Prior [facility] Admission?: Yes Date: 03/12/17 Results: 0 mm PPD to be Administered?: No - Smoking Cessation Smoking history: Current every day smoker Have you smoked in the past 12 months: Yes Aproximately how many cigarettes per day: 5 Cigars Per Day: 0 Hx Chewing Tobacco Use: No Initiated information on smoking cessation: Yes 'Breaking Loose' booklet given: 01/26/18 - Substance & Tx. History Hx Alcohol Use: Yes Hx Substance Use: Yes Substance Use Type: Alcohol, Cocaine - Substances Abused Alcohol Route: Oral Frequency: Daily Amount used: 12 CANS OF BEERS (12 OUNCES) Age of first use: 10 Date of Last Use: 01/26/18 Cocaine Route: Smoking Frequency: 1-3 times last 30 days Amount used: $20 Age of first use: 11 Date of Last Use: 01/21/18 Family Disease History - Family Disease History Family Disease History: Diabetes: Grandparent (GRANDMOTHER-ALCOHOLISM; G-FATHER- PROSTATE CA--.), Mother (HTN-), CA: Grandparent, Other: Father ( no contact - alcohol), Mother, Brother (healthy), Sister (healthy) Admission Physical Exam S - Vital Signs Vital Signs: Vital Signs - 24 hr 01/26/18 10:38 Temperature 97.3 F L Pulse Rate 74 Respiratory 18 Rate Blood Pressure 92/66 - Physical General Appearance: Yes: Moderate Distress, Tremorous, Irritable, Sweating, Anxious HEENTM: Yes: Normal ENT Inspection, OSMAN, Pharynx Normal Respiratory: Yes: Within Normal Limits, Lungs Clear, Normal Breath Sounds Neck: Yes: Within Normal Limits, Supple, Trachea in good position Breast: Yes: Within Normal Limits Cardiology: Yes: Within Normal Limits, Regular Rhythm, Regular Rate, S1, S2 Abdominal: Yes: Within Normal Limits, Normal Bowel Sounds, Non Tender, Flat, Soft Genitourinary: Yes: Within Normal Limits Back: Yes: Muscle Spasm Extremities: Yes: Normal Range of Motion, Tremors Neurological: Yes: workplace relations adviser II-XII NML intact, Alert, Motor Strength 5/5 Integumentary: Yes: Dry Lymphatic: Yes: Within Normal Limits - Diagnostic (1) Alcohol dependence with withdrawal, uncomplicated Current Visit: No Status: Acute (2) Alcohol dependence with acute alcoholic intoxication without complication Current Visit: No Status: Acute (3) Cocaine dependence, uncomplicated Current Visit: No Status: Acute (4) Frequent falls Current Visit: No Status: Acute (5) Opioid dependence on agonist therapy Current Visit: No Status: Acute (6) Nicotine dependence Current Visit: No Status: Acute Qualifiers: Nicotine product type: cigarettes Substance use status: uncomplicated Qualified Code(s): F17.210 - Nicotine dependence, cigarettes, uncomplicated Cleared for Admission [facility] - Detox or Rehab [facility] Level of Care: Medically Managed Detox Regimen/Protocol: Librium [facility] Breath Alcohol Content Breath Alcohol Content: 0.157 Urine Drug Screen - Results Drug Screen Negative: No Urine Drug Screen Results: MTD-Methadone
[2018-01-26] MEDS ORDERED: MAGNESIUM HYDROX 2400MG/30ML ORAL SUSPENSION 30 ML CUP PO PRN (11:22)
[2018-01-26] MEDS ORDERED: guaiFENesin/D-METHORPHAN HB 10 ML UNIT-DOSE CUPS PO PRN (11:22)
[2018-01-26] MEDS ORDERED: LOPERAMIDE HCL 2 MG CAPSULE PO PRN (11:22)
[2018-01-26] MEDS ORDERED: MAG HYDROX/AL HYDROX/SIMETH 30 ML UNIT-DOSE CUP PO PRN (11:22)
[2018-01-26] MEDS ORDERED: MENTHOL/PHENOL 1 EACH UD MM PRN (11:22)
[2018-01-26] MEDS ORDERED: ACETAMINOPHEN 325 MG TABLET (FP) PO PRN (11:22)
[2018-01-26] MEDS ORDERED: chlordiazePOXIDE HCL 25 MG CAPSULE PO PRN (11:22)
[2018-01-26] MEDS ORDERED: hydrOXYzine PAMOATE 50 MG CAPSULE (FP) PO PRN (11:22)
[2018-01-26] MEDS ORDERED: MAGNESIUM CITRATE 300 ML BOTTLE PO PRN (11:22)
[2018-01-26] MEDS: chlordiazePOXIDE HCL 25 MG CAPSULE PO SCH ×2 (17:46→22:33)
[2018-01-26 18:11] LABS: URINE APPEARANCE CLEAR; URINE BILIRUBIN NEGATIVE (<2.0 mg/dL); URINE COLOR COLORLESS; URINE GLUCOSE (UA) NEGATIVE (NEGATIVE); URINE KETONE NEGATIVE (NEGATIVE); URINE LEUK ESTERASE NEGATIVE (NEGATIVE); URINE NITRITE NEGATIVE (NEGATIVE); URINE PROTEIN NEGATIVE (NEGATIVE); URINE UROBILINOGEN NEGATIVE mg/dL (0.2-1.0)
[2018-01-26] MEDS ORDERED: MELATONIN 5 MG TABLETS PO PRN (22:00)
[2018-01-26] MEDS: THIAMINE HCL 100 MG TABLET (FP) PO SCH (22:32)
[2018-01-27] MEDS: chlordiazePOXIDE HCL 25 MG CAPSULE PO SCH ×4 (05:48→22:38)
--- NOTE | 2018-01-27 08:45 | CONSULT ---
[facility] Psychiatric Consult - Data Date of interview: 01/27/18 Admission source: [facility] Identifying data: This is a 47 years old male, single, unemployed, living with roommate, on PA support, with psychiatric hospitalization history, with history of Bipolar Disorder, reportsa history of Alcohol, Cocaine and Nicotins dependence and seeking detox. ,last detox 06/02/17 to 06/06/17. black out. multiple admissions to detox,but keep relapsing. mmtp 40 mgs/day,last medicated today,has a bottle to take home. nicotine dependence. anxiety, depression,insomnia. no significant peroid of sobriety Substance Abuse History: - Smoking Cessation. Smoking history: Current every day smoker. Have you smoked in the past 12 months: Yes. Aproximately how many cigarettes per day: 5. Cigars Per Day: 0. Hx Chewing Tobacco Use: No. Initiated information on smoking cessation: Yes. 'Breaking Loose' booklet given : 01/26/18. - Substance & Tx. History. Hx Alcohol Use: Yes. Hx Substance Use : Yes. Substance Use Type: Alcohol, Cocaine. - Substances Abused. Alcohol. Route: Oral. Frequency: Daily. Amount used: 12 CANS OF BEERS (12 OUNCES). Age of first use: 10. Date of Last Use: 01/26/18. Cocaine. Route : Smoking. Frequency: 1-3 times last 30 days. Amount used: $20. Age of first use: 11. Date of Last Use: 01/21/18 Medical History: MMTP 40 mg/day, Seborrheic dermatitis, Syncope history. Psychiatric History: Patient reports portillo carry Bip[olar Disorder, reports psychiatrioc admission 5-7 years ago for safety, denies suicidal, homicidal history, asking for Seroquel 50mg po qhd for imsomnia. Physical/Sexual Abuse/Trauma History: Denies Additional Comment: Seroquel 50mg po qhd for imsomnia. Mental Status Exam - Mental Status Exam Alert and Oriented to: Person Cognitive Function: Fair Patient Appearance: Unkempt Mood: Sad Affect: Flat Patient Behavior: Sedated Speech Pattern: Delayed Voice Loudness: Mildly Soft/Quiet Thought Process: Circumstantial Thought Disorder: Being Controlled Hallucinations: Denies Suicidal Ideation: Denies Homicidal Ideation: Denies Insight/Judgement: Fair Sleep: Difficulty falling asleep Appetite: Fair Muscle strength/Tone: Normal Gait/Station: Normal Additional Comments: Seroquel 50mg po qhd for imsomnia. Psychiatric Findings - Problem List ([place] 1, 2,3) (1) Alcohol dependence Current Visit: No Status: Acute (2) Alcohol dependence with acute alcoholic intoxication without complication Current Visit: No Status: Acute (3) Alcohol dependence with withdrawal, uncomplicated Current Visit: No Status: Acute (4) Cocaine dependence, uncomplicated Current Visit: No Status: Acute (5) Drug-induced mood disorder Current Visit: No Status: Acute (6) Frequent falls Current Visit: No Status: Acute (7) Frostbite with tissue necrosis of finger Current Visit: No Status: Acute Qualifiers: Encounter type: subsequent encounter Comment: BOTH INDEX FINGERS (8) Mood Disorder NOS Current Visit: No Status: Acute (9) Opioid dependence on agonist therapy Current Visit: No Status: Acute (10) Methadone maintenance therapy patient Current Visit: No Status: Chronic (11) Seborrheic dermatitis Current Visit: No Status: Chronic (12) Syncope Current Visit: No Status: Chronic Qualifiers: Syncope type: unspecified Qualified Code(s): R55 - Syncope and collapse - Initial Treatment Plan Initial Treatment Plan: Seroquel 50mg po qhs
[2018-01-27] MEDS ORDERED: METHADONE HCL 40 MG DISPERSABLE TABLET PO SCH (09:30)
--- NOTE | 2018-01-27 09:50 | EKG ---
Test Reason : Blood Pressure : / mmHG Vent. Rate : 062 BPM Atrial Rate : 062 BPM P-R Int : 124 ms QRS Dur : 100 ms QT Int : 434 ms P-R-T Axes : 000 076 048 degrees QTc Int : 440 ms NORMAL SINUS RHYTHM NORMAL ECG WHEN COMPARED WITH ECG OF 02-JUN-2017 15:45, NO SIGNIFICANT CHANGE WAS FOUND Confirmed by ANGELA FOWLER MD ([id number]) on 01/27/2018 9:49:57 AM Referred By: Confirmed By:ANGELA FOWLER MD
[2018-01-27 10:23] LABS: HEMATOCRIT 40.7 % (35.4-49); HEMOGLOBIN 13.2 GM/dL (11.7-16.9); MCH 33.4 pg (25.7-33.7); MCHC 32.4 g/dl (32.0-35.9); MEAN PLT VOLUME 7.7 fl (7.5-11.1); PLATELET COUNT 342 K/MM3 (134-434); RBC 3.95 M/mm3 (4.00-5.60); RDW 13.7 % (11.9-15.9)
[2018-01-27] MEDS: PRENATAL VITAMINS W/ FOLIC ACID TABLET (FP) PO SCH (10:38)
[2018-01-27 10:46] LABS: ALBUMIN 3.6 g/dl (3.4-5.0); ALK PHOS 102 U/L (45-117); ANION GAP 10 MMOL/L (8-16); BILIRUBIN,TOTAL 0.4 mg/dL (0.2-1); BLOOD UREA NITROGEN 8 mg/dL (7-18); CALCIUM 9.8 mg/dL (8.5-10.1); CHLORIDE 99 mmol/L (98-107); CO2 29 mmol/L (21-32); CREATININE 0.6 mg/dL (0.55-1.3); GLUCOSE,RANDOM 93 mg/dL (74-106); POTASSIUM 4.5 mmol/L (3.5-5.1); SGOT/AST 515 U/L (15-37); SGPT/ALT 251 U/L (13-61); SODIUM 137 mmol/L (136-145); TOT PROT 9.3 g/dl (6.4-8.2)
--- NOTE | 2018-01-27 16:20 | PN ---
S CIWA - CIWA Score Nausea/Vomitin Muscle Tremors: 3 Anxiety: 2 Agitation: 2 Paroxysmal Sweats: 3 Orientation: 0-Oriented Tacttile Disturbances: 0-None Auditory Disturbances: 0-None Visual Disturbances: 0-None Headache: 0-None Present CIWA-Ar Total Score: 12 BHS Progress Note (SOAP) Subjective: sweats sleep disturbance Objective: 01/27/18 16:17 A & O x 3 Ambulates steadily Vital Signs Temperature 98.3 F 01/27/18 13:12 Pulse Rate 96 H 01/27/18 13:12 Respiratory Rate 20 01/27/18 13:12 Blood Pressure 102/72 01/27/18 13:12 O2 Sat by Pulse Oximetry (%) Laboratory Last Values WBC 6.0 K/mm3 (4.0-10.0) 01/27/18 07:00 RBC 3.95 M/mm3 (4.00-5.60) L 01/27/18 07:00 Hgb 13.2 GM/dL (11.7-16.9) 01/27/18 07:00 Hct 40.7 % (35.4-49) 01/27/18 07:00 MCV 103.0 fl (80-96) H 01/27/18 07:00 MCH 33.4 pg (25.7-33.7) 01/27/18 07:00 MCHC 32.4 g/dl (32.0-35.9) 01/27/18 07:00 RDW 13.7 % (11.9-15.9) 01/27/18 07:00 Plt Count 342 K/MM3 (134-434) 01/27/18 07:00 MPV 7.7 fl (7.5-11.1) 01/27/18 07:00 Sodium 137 mmol/L (136-145) 01/27/18 07:00 Potassium 4.5 mmol/L (3.5-5.1) 01/27/18 07:00 Chloride 99 mmol/L (98-107) 01/27/18 07:00 Carbon Dioxide 29 mmol/L (21-32) 01/27/18 07:00 Anion Gap 10 MMOL/L (8-16) 01/27/18 07:00 BUN 8 mg/dL (7-18) 01/27/18 07:00 Creatinine 0.6 mg/dL (0.55-1.3) 01/27/18 07:00 Creat Clearance w eGFR > 60 (>60) 01/27/18 07:00 Random Glucose 93 mg/dL (74-106) 01/27/18 07:00 Calcium 9.8 mg/dL (8.5-10.1) 01/27/18 07:00 Total Bilirubin 0.4 mg/dL (0.2-1) 01/27/18 07:00 AST 515 U/L (15-37) H 01/27/18 07:00 ALT 251 U/L (13-61) H 01/27/18 07:00 Alkaline Phosphatase 102 U/L (45-117) 01/27/18 07:00 Total Protein 9.3 g/dl (6.4-8.2) H 01/27/18 07:00 Albumin 3.6 g/dl (3.4-5.0) 01/27/18 07:00 Urine Color Colorless 01/26/18 16:33 Urine Appearance Clear 01/26/18 16:33 Urine pH 5.0 (5.0-8.0) D 01/26/18 16:33 Ur Specific [place] 1.003 (1.010-1.035) L 01/26/18 16:33 Urine Protein Negative (NEGATIVE) 01/26/18 16:33 Urine Glucose (UA) Negative (NEGATIVE) 01/26/18 16:33 Urine Ketones Negative (NEGATIVE) 01/26/18 16:33 Urine Blood Negative (NEGATIVE) 01/26/18 16:33 Urine Nitrite Negative (NEGATIVE) 01/26/18 16:33 Urine Bilirubin Negative (<2.0 mg/dL) 01/26/18 16:33 Urine Urobilinogen Negative mg/dL (0.2-1.0) 01/26/18 16:33 Ur Leukocyte Esterase Negative (NEGATIVE) 01/26/18 16:33 RPR Titer Nonreactive (NONREACTIVE) 01/27/18 07:00 labs noted RBC sligtly low Elevated AST/ALT levels Assessment: 01/27/18 16:21 withdrawal sx elevated liver enzymes in line with alcohol consumption Plan: continue detox
[2018-01-27] MEDS: THIAMINE HCL 100 MG TABLET (FP) PO SCH (22:38)
[2018-01-27] MEDS: IBUPROFEN 400 MG TABLET (FP) PO PRN (22:42)
[2018-01-28] MEDS: METHADONE HCL 40 MG DISPERSABLE TABLET PO SCH (05:24)
[2018-01-28] MEDS: chlordiazePOXIDE HCL 25 MG CAPSULE PO SCH ×2 (05:24→10:33)
[2018-01-28] MEDS: PRENATAL VITAMINS W/ FOLIC ACID TABLET (FP) PO SCH (10:38)
--- NOTE | 2018-01-28 11:07 | PN ---
[facility] CIWA - CIWA Score Nausea/Vomitin-No Nausea/No Vomiting Muscle Tremors: 1-None Visible, but [place] Anxiety: 1-Mildly Anxious Agitation: 1-Slight > Activity Paroxysmal Sweats: 1-Minimal Palms Moist Orientation: 0-Oriented Tacttile Disturbances: 0-None Auditory Disturbances: 0-None Visual Disturbances: 0-None Headache: 1-Very Mild CIWA-Ar Total Score: 5 [facility] Progress Note (SOAP) Subjective: PATIENT C/O MILD HEADACHE, INTERMITTENT SWEATING AND ANXIETY Objective: 01/28/18 11:05 Laboratory Tests 01/26/18 01/27/18 01/27/18 16:33 07:00 07:00 WBC 6.0 RBC 3.95 L Hgb 13.2 Hct 40.7 MCV 103.0 H MCH 33.4 MCHC 32.4 RDW 13.7 Plt Count 342 MPV 7.7 Sodium 137 Potassium 4.5 Chloride 99 Carbon Dioxide 29 Anion Gap 10 BUN 8 Creatinine 0.6 Creat Clearance w eGFR > 60 Random Glucose 93 Calcium 9.8 Total Bilirubin 0.4 AST 515 H ALT 251 H Alkaline Phosphatase 102 Total Protein 9.3 H Albumin 3.6 Urine Color Colorless Urine Appearance Clear Urine pH 5.0 D Ur Specific [place] 1.003 L Urine Protein Negative Urine Glucose (UA) Negative Urine Ketones Negative Urine Blood Negative Urine Nitrite Negative Urine Bilirubin Negative Urine Urobilinogen Negative Ur Leukocyte Esterase Negative RPR Titer 01/27/18 07:00 WBC RBC Hgb Hct MCV MCH MCHC RDW Plt Count MPV Sodium Potassium Chloride Carbon Dioxide Anion Gap BUN Creatinine Creat Clearance w eGFR Random Glucose Calcium Total Bilirubin AST ALT Alkaline Phosphatase Total Protein Albumin Urine Color Urine Appearance Urine pH Ur Specific [place] Urine Protein Urine Glucose (UA) Urine Ketones Urine Blood Urine Nitrite Urine Bilirubin Urine Urobilinogen Ur Leukocyte Esterase RPR Titer Nonreactive Vital Signs Temperature 97.7 F 01/28/18 09:37 Pulse Rate 86 01/28/18 09:37 Respiratory Rate 18 01/28/18 09:37 Blood Pressure 82/55 L 01/28/18 09:37 O2 Sat by Pulse Oximetry (%) ALERT AND ORIENTED, SLEEPY SKIN MILD MOISTURE TO PALMS OF HANDS CAR S1S2 RESP CTA BL EXT MILD TREMORS FELT, FULL ROM Assessment: 01/28/18 11:06 WITHDRAWAL SX ELEVATED LFTS Plan: LIBRIUM DOSE HELD DUE TO LOW BP/SEDATION ENCOURAGE ORAL FLUIDS CHECK AMMONIA LEVEL AND REPEAT LFTS IN AM CONTINUE TO MONITOR CLINICALLY
[2018-01-28] MEDS: chlordiazePOXIDE 5 MG CAPSULE PO SCH ×2 (17:27→22:04)
[2018-01-28] MEDS: THIAMINE HCL 100 MG TABLET (FP) PO SCH (22:04)
[2018-01-28] MEDS: P-EPHED 60MG/TRIPROLIDI 2.5MG TABLET PO PRN (22:07)
[2018-01-29] MEDS: chlordiazePOXIDE 5 MG CAPSULE PO SCH ×2 (05:15→10:13)
[2018-01-29] MEDS: METHADONE HCL 40 MG DISPERSABLE TABLET PO SCH (05:15)
[2018-01-29] MEDS: PRENATAL VITAMINS W/ FOLIC ACID TABLET (FP) PO SCH (10:13)
[2018-01-29] MEDS: P-EPHED 60MG/TRIPROLIDI 2.5MG TABLET PO PRN ×2 (10:17→17:50)
[2018-01-29 10:58] LABS: ALBUMIN 3.3 g/dl (3.4-5.0); BILIRUBIN,DIRECT 0.2 mg/dL (0.0-0.2); BILIRUBIN,TOTAL 0.5 mg/dL (0.2-1); TOT PROT 8.1 g/dl (6.4-8.2)
--- NOTE | 2018-01-29 13:26 | PN ---
[facility] Progress Note (SOAP) Subjective: Chills, sweating, tremor, interrupted sleep, nasal congestion, anxious Objective: 01/29/18 13:24 Last Vital Signs Temp Pulse Resp BP Pulse Ox 97.0 F L 117 H 20 98/67 01/29/18 09:16 01/29/18 09:16 01/29/18 09:16 01/29/18 09:16 Laboratory Tests 01/26/18 01/27/18 01/27/18 16:33 07:00 07:00 WBC 6.0 RBC 3.95 L Hgb 13.2 Hct 40.7 MCV 103.0 H MCH 33.4 MCHC 32.4 RDW 13.7 Plt Count 342 MPV 7.7 Sodium 137 Potassium 4.5 Chloride 99 Carbon Dioxide 29 Anion Gap 10 BUN 8 Creatinine 0.6 Creat Clearance w eGFR > 60 Random Glucose 93 Calcium 9.8 Total Bilirubin 0.4 Direct Bilirubin AST 515 H ALT 251 H Alkaline Phosphatase 102 Ammonia Total Protein 9.3 H Albumin 3.6 Urine Color Colorless Urine Appearance Clear Urine pH 5.0 D Ur Specific [place] 1.003 L Urine Protein Negative Urine Glucose (UA) Negative Urine Ketones Negative Urine Blood Negative Urine Nitrite Negative Urine Bilirubin Negative Urine Urobilinogen Negative Ur Leukocyte Esterase Negative RPR Titer 01/27/18 01/29/18 01/29/18 07:00 07:00 07:00 WBC RBC Hgb Hct MCV MCH MCHC RDW Plt Count MPV Sodium Potassium Chloride Carbon Dioxide Anion Gap BUN Creatinine Creat Clearance w eGFR Random Glucose Calcium Total Bilirubin 0.5 Direct Bilirubin 0.2 AST 304 H ALT 204 H Alkaline Phosphatase 83 Ammonia 73.42 H Total Protein 8.1 Albumin 3.3 L Urine Color Urine Appearance Urine pH Ur Specific [place] Urine Protein Urine Glucose (UA) Urine Ketones Urine Blood Urine Nitrite Urine Bilirubin Urine Urobilinogen Ur Leukocyte Esterase RPR Titer Nonreactive Labs reviewed Assessment: 01/29/18 13:25 Withdrawal symptoms Plan: Continue detox Encouraged PO water intake
[2018-01-29] MEDS: FLUTICASONE PROP 0.05% 16 GM NASAL SPRAY NS SCH ×2 (14:46→22:07)
[2018-01-29] MEDS: LACTULOSE 20 GM/30 ML UDC (FOR ORAL USE ONLY) PO SCH ×2 (15:29→22:07)
[2018-01-29] MEDS: IBUPROFEN 400 MG TABLET (FP) PO PRN (17:47)
[2018-01-29] MEDS: chlordiazePOXIDE HCL 10 MG CAPSULE PO SCH ×2 (18:01→22:07)
[2018-01-29] MEDS: THIAMINE HCL 100 MG TABLET (FP) PO SCH (22:07)
[2018-01-30] MEDS: LACTULOSE 20 GM/30 ML UDC (FOR ORAL USE ONLY) PO SCH (06:42)
[2018-01-30] MEDS: METHADONE HCL 40 MG DISPERSABLE TABLET PO SCH (06:42)
[2018-01-30] MEDS: chlordiazePOXIDE HCL 10 MG CAPSULE PO SCH (06:42)
[2018-01-30 09:17] VITALS: BP 96/59; PULSE 106; TEMP 99
--- NOTE | 2018-01-30 10:38 | DS ---
[facility] Detox Discharge Summary Admission Date: 01/26/18 Discharge Date: 01/30/18 - History Present History: Alcohol Dependence, MMTP - Physical Exam Results Vital Signs: Vital Signs Temperature 99.0 F 01/30/18 09:17 Pulse Rate 106 H 01/30/18 09:17 Respiratory Rate 20 01/30/18 09:17 Blood Pressure 96/59 L 01/30/18 09:17 O2 Sat by Pulse Oximetry (%) Pertinent Admission Physical Exam Findings: PATIENT TOLERATED DETOX REGIMEN WITHOUT ADVERSE EVENT. PATIENT CLINICALLY STABLE. DENIES SI/HI. PATIENT ALERT AND ORIENTED X 3. SKIN WARM AND DRY, CAR S1S2, RESP CTA BL, EXT FULL ROM, NO TREMORS. PATIENT TO FOLLOW UP WITH [facility] TODAY. PATIENT ENCOURAGED TO ATTEND GROUP MEETINGS TO PREVENT RELAPSE, TO SEEK MEDICAL TREATMENT IF WITHDRAWAL SYMPTOMS OCCUR AND TO FOLLOW UP WITH PCP WITHIN 72 HOURS OF DISCHARGE. PATIENT VERBALIZED UNDERSTANDING OF ALL EDUCATION AND RECOMMENDATIONS PROVIDED. - Treatment Hospital Course: Detox Protocol Followed, Detoxed Safely, Responded well, Discharged Condition Good, Rehab Referral Accepted Patient has Accepted a Rehab Referral to: [facility] - Medication Discharge Medications: Ambulatory Orders Methadone [Dolophine -] 40 mg PO DAILY 01/26/18 Lactulose (Oral Use) [Cephulac -] 20 gm PO TID 3 Days #1 bottle 01/30/18 - Diagnosis (1) Alcohol dependence with withdrawal, uncomplicated Current Visit: Yes Status: Resolved - AMA Did Patient Leave Against Medical Advice: No
[2018-01-30] MEDS ORDERED: LACTULOSE 20 GM/30 ML UDC (FOR ORAL USE ONLY) PO SCH (14:00)
== END 2018-01-30 11:00 | disposition home or self-care (01) | DRG 773 ==
LOC: YASAS 10:27 → Y3N 11:24
PROC: HZ2ZZZZ Detoxification Services for Substance Abuse Treatment (ICD-10-PCS; principal; 2018-01-26)
DX: F10.230 Alcohol dependence with withdrawal, uncomplicated (principal); F10.220 Alcohol dependence with intoxication, uncomplicated; F11.20 Opioid dependence, uncomplicated; F14.20 Cocaine dependence, uncomplicated; F17.210 Nicotine dependence, cigarettes, uncomplicated; F32.9 Major depressive disorder, single episode, unspecified; F19.24 Other psychoactive substance dependence with psychoactive substance-induced mood disorder; F39 Unspecified mood [affective] disorder; R94.5 Abnormal results of liver function studies; L21.9 Seborrheic dermatitis, unspecified; R29.6 Repeated falls; Z88.1 Allergy status to other antibiotic agents
CPT/HCPCS: 36415; 80053; 80076; 81003; 82140; 85027; 86593; 93005; 93010

== ENCOUNTER 2023-05-06 10:22 | Inpatient (IN) | payer OTHER ==
[2023-05-06 11:18] VITALS: BMI 21.1
[2023-05-06] MEDS ORDERED: LOPERAMIDE HCL 2 MG CAPSULE PO PRN (12:02)
[2023-05-06] MEDS ORDERED: BENZONATATE 200 MG CAPSULE PO PRN (12:02)
[2023-05-06] MEDS ORDERED: guaiFENesin 600 MG TABLET.ER (FP) PO PRN (12:02)
[2023-05-06] MEDS ORDERED: IBUPROFEN 600 MG TABLET (FP) PO PRN (12:02)
[2023-05-06] MEDS ORDERED: NALOXONE HCL 0.4 MG/ML VIAL IM PRN (12:02)
[2023-05-06] MEDS ORDERED: NALOXONE HCL (KLOXXADO) 8 MG SPRAY NS PRN (12:02)
[2023-05-06] MEDS ORDERED: DICYCLOMINE HCL 10 MG CAPSULE PO PRN (12:02)
[2023-05-06] MEDS ORDERED: BISMUTH SUBSALICYLATE 524 MG/30 ML PO PRN (12:02)
[2023-05-06] MEDS ORDERED: MAGNESIUM HYDROX 2400MG/30ML ORAL SUSPENSION 30 ML CUP PO PRN (12:02)
[2023-05-06] MEDS ORDERED: POLYETHYLENE GLYCOL (HEALTHYLAX) 3350 17 GM PACKET PO PRN (12:02)
[2023-05-06] MEDS ORDERED: LORazepam 1 MG TABLET PO PRN (12:02)
[2023-05-06] MEDS ORDERED: MAG HYDROX/AL HYDROX/SIMETH 30 ML UNIT-DOSE CUP PO PRN (12:02)
[2023-05-06] MEDS ORDERED: BENZOCAINE/MENTHOL (CHLORASEPTIC ) LOZENGE MM PRN (12:02)
[2023-05-06] MEDS ORDERED: ACETAMINOPHEN 325 MG TABLET (FP) PO PRN (12:02)
[2023-05-06] MEDS ORDERED: ONDANSETRON *ODT* 4 MG TABLET SL PRN (12:02)
[2023-05-06] MEDS: PRENATAL VITAMINS W/ FOLIC ACID TABLET (FP) PO SCH (13:18)
[2023-05-06] MEDS: methaDONE HCL 10 MG TABLET PO SCH (14:09)
[2023-05-06] MEDS: LORazepam 2 MG TABLET PO SCH (17:14)
[2023-05-06] MEDS: THIAMINE HCL 100 MG TABLET (FP) PO SCH (22:13)
[2023-05-06] MEDS: MELATONIN 5 MG TABLETS PO SCH (22:15)
[2023-05-07] MEDS: METHOCARBAMOL 500 MG TABLET PO PRN (10:44)
[2023-05-07 11:50] LABS: HEMATOCRIT 33.1 % (35.4-49); HEMOGLOBIN 11.6 GM/dL (11.7-16.9); MCH 35.2 pg (25.7-33.7); MCHC 35.1 g/dl (32.0-35.9); MEAN CELL VOLUME 100.3 fl (80-96); MEAN PLT VOLUME 7.5 fl (7.5-11.1); PLATELET COUNT 283 10^3/uL (134-434); RDW 13.6 % (11.9-15.9); WHITE BLOOD COUNT 8.7 K/mm3 (4.0-10.0)
[2023-05-07 12:21] LABS: POTASSIUM 4.2 mmol/L (3.5-5.1)
[2023-05-07 12:30] LABS: TOT PROT 8.3 g/dl (6.4-8.2)
[2023-05-07 12:31] LABS: ALBUMIN 4.2 g/dl (3.4-5.0); BLOOD UREA NITROGEN 9.4 mg/dL (7-18); CALCIUM 9.5 mg/dL (8.5-10.1)
[2023-05-07 12:33] LABS: CREATININE 0.8 mg/dL (0.55-1.3)
[2023-05-07 12:35] LABS: BILIRUBIN,TOTAL 1.1 mg/dL (0.2-1)
[2023-05-07] MEDS: IBUPROFEN 400 MG TABLET (FP) PO PRN (17:10)
[2023-05-08] MEDS: LORazepam 1 MG TABLET PO SCH (05:05)
[2023-05-08 12:10] LABS: HEMATOCRIT 32.6 % (35.4-49); HEMOGLOBIN 10.9 GM/dL (11.7-16.9); MCH 34.4 pg (25.7-33.7); MCHC 33.4 g/dl (32.0-35.9); MEAN CELL VOLUME 103.1 fl (80-96); MEAN PLT VOLUME 7.9 fl (7.5-11.1); PLATELET COUNT 267 10^3/uL (134-434); RBC 3.16 M/mm3 (4.00-5.60); WHITE BLOOD COUNT 7.6 K/mm3 (4.0-10.0)
[2023-05-08 13:56] LABS: POTASSIUM 4.3 mmol/L (3.5-5.1)
[2023-05-08 14:03] LABS: BLOOD UREA NITROGEN 11.8 mg/dL (7-18); CALCIUM 9.7 mg/dL (8.5-10.1)
[2023-05-08 14:07] LABS: CREATININE 0.8 mg/dL (0.55-1.3)
[2023-05-08 14:09] LABS: BILIRUBIN,TOTAL 0.6 mg/dL (0.2-1); TOT PROT 7.9 g/dl (6.4-8.2)
[2023-05-09] MEDS ORDERED: LORazepam 0.5 MG TABLET PO PRN
[2023-05-09] MEDS: LORazepam 0.5 MG TABLET PO SCH (05:11)
[2023-05-10] MEDS: LORazepam 0.5 MG TABLET PO ONE (05:38)
[2023-05-10 16:43] VITALS: BP 124/74; PULSE 94; RESP 17; TEMP 98.6
[2023-05-10] MEDS: hydrOXYzine PAMOATE 25 MG CAPSULE (FP) PO PRN (17:20)
== END 2023-05-10 18:32 | disposition other institution (70) | DRG 773 ==
LOC: YASAS 10:22 → Y6N 12:23
PROVIDERS: ADMIT Allergy & Immunology; ATTEND Surgery
PROC: HZ2ZZZZ Detoxification Services for Substance Abuse Treatment (ICD-10-PCS; principal; 2023-05-06)
DX: F10.230 Alcohol dependence with withdrawal, uncomplicated (principal); F11.20 Opioid dependence, uncomplicated; F14.20 Cocaine dependence, uncomplicated; F31.9 Bipolar disorder, unspecified; F19.282 Other psychoactive substance dependence with psychoactive substance-induced sleep disorder; F19.280 Other psychoactive substance dependence with psychoactive substance-induced anxiety disorder; F19.24 Other psychoactive substance dependence with psychoactive substance-induced mood disorder; F39 Unspecified mood [affective] disorder; G47.00 Insomnia, unspecified; Z87.891 Personal history of nicotine dependence; Z88.0 Allergy status to penicillin
CPT/HCPCS: 36415; 80053; 80307; 83036; 85027; 86780; 87635; 87811

== ENCOUNTER 2023-05-10 17:18 | Inpatient (IN) | payer OTHER ==
[2023-05-10] MEDS ORDERED: guaiFENesin 600 MG TABLET.ER (FP) PO PRN (19:30)
[2023-05-10] MEDS ORDERED: BENZOCAINE/MENTHOL (CHLORASEPTIC ) LOZENGE MM PRN (19:30)
[2023-05-10] MEDS ORDERED: ACETAMINOPHEN 325 MG TABLET (FP) PO PRN (19:30)
[2023-05-10] MEDS ORDERED: NICOTINE POLACRILEX 2 MG GUM BUC PRN (19:30)
[2023-05-10] MEDS ORDERED: MAG HYDROX/AL HYDROX/SIMETH 30 ML UNIT-DOSE CUP PO PRN (19:30)
[2023-05-10] MEDS ORDERED: MAGNESIUM HYDROX 2400MG/30ML ORAL SUSPENSION 30 ML CUP PO PRN (19:30)
[2023-05-10] MEDS ORDERED: P-EPHED 60MG/TRIPROLIDI 2.5MG TABLET PO PRN (19:30)
[2023-05-10] MEDS ORDERED: POLYETHYLENE GLYCOL (HEALTHYLAX) 3350 17 GM PACKET PO PRN (19:30)
[2023-05-10] MEDS ORDERED: LOPERAMIDE HCL 2 MG CAPSULE PO PRN (19:30)
[2023-05-10] MEDS ORDERED: BENZONATATE 200 MG CAPSULE PO PRN (19:30)
[2023-05-10] MEDS ORDERED: IBUPROFEN 400 MG TABLET (FP) PO PRN (19:30)
[2023-05-10] MEDS: METHOCARBAMOL 500 MG TABLET PO PRN (20:35)
[2023-05-10] MEDS: hydrOXYzine PAMOATE 25 MG CAPSULE (FP) PO PRN (20:37)
[2023-05-10] MEDS: THIAMINE HCL 100 MG TABLET (FP) PO SCH (21:39)
[2023-05-10] MEDS: MELATONIN 5 MG TABLETS PO SCH (21:39)
[2023-05-11] MEDS: methaDONE HCL 10 MG TABLET PO SCH (06:24)
[2023-05-11] MEDS: PRENATAL VITAMINS W/ FOLIC ACID TABLET (FP) PO SCH (10:05)
[2023-05-11] MEDS: IBUPROFEN 600 MG TABLET (FP) PO PRN (10:07)
[2023-05-17] MEDS: BACLOFEN 10 MG TABLET (FP) PO SCH (21:12)
[2023-05-18] MEDS: methaDONE HCL 10 MG TABLET PO SCH (06:39)
[2023-05-21 07:17] VITALS: RESP 18
[2023-05-21] MEDS: BACLOFEN 10 MG TABLET (FP) PO SCH (14:20)
[2023-05-21] MEDS: SALICYLIC ACID (WART REMOVER) 9 ML LIQUID TP SCH (14:46)
[2023-05-24 07:29] VITALS: BP 117/80; PULSE 85; TEMP 97.7
== END 2023-05-24 11:15 | disposition home or self-care (01) | DRG 772 ==
LOC: YASAS 17:18 → Y5N 17:19
PROVIDERS: ADMIT Allergy & Immunology; ATTEND Psychiatry & Neurology Pain Medicine
PROC: HZ42ZZZ Group Counseling for Substance Abuse Treatment, Cognitive-Behavioral (ICD-10-PCS; principal; 2023-05-10)
DX: F10.20 Alcohol dependence, uncomplicated (principal); F14.20 Cocaine dependence, uncomplicated; F11.20 Opioid dependence, uncomplicated; F17.210 Nicotine dependence, cigarettes, uncomplicated; F31.9 Bipolar disorder, unspecified; F41.9 Anxiety disorder, unspecified; L84 Corns and callosities; Z99.89 Dependence on other enabling machines and devices; Z87.891 Personal history of nicotine dependence; Z88.0 Allergy status to penicillin
CPT/HCPCS: 36415; 84550; J0475